=== PATIENT | female | born 1940 | race Caucasian/White ===

== ENCOUNTER 2018-09-11 17:42 | Inpatient (IN) ==
--- NOTE | 2018-09-11 18:26 | PROVIDER DOCUMENTATION ---
HPI-Neurological Disorder - General Chief Complaint: Altered Mental Status Stated Complaint: AMS, fever Time Seen by Provider: 09/11/18 17:52 Source: patient, family Allergies/Adverse Reactions: Patient Allergies Allergy/AdvReac Type Severity Reaction Status Date / Time pseudoephedrine Allergy Severe ITCHING Verified 12/26/17 16:54 [From [facility]] Home Medications: Home Medication List Medication Instructions Recorded Confirmed Last Taken Type Methylphenidate HCl [Ritalin] 30 mg PO DAILY 12/26/17 09/11/18 Unknown History Tramadol [Ultram] 50 mg PO Q8HR 7 Days #20 tablet 12/26/17 09/11/18 Unknown Rx Carbidopa/Levodopa [Carbidopa-Levo 25 - 100 mg PO DAILY PRN 09/11/18 09/11/18 Unknown History 25-100 Tab] Clonazepam 0.5 mg PO DAILY 09/11/18 09/11/18 Unknown History Furosemide 40 mg PO DAILY PRN 09/11/18 09/11/18 Unknown History Gabapentin E.r. [Gralise] 300 mg PO DAILY 09/11/18 09/11/18 Unknown History Levothyroxine [Synthroid] 125 microgm PO DAILY 09/11/18 09/11/18 Unknown History Ropinirole [Requip] 4 mg PO DAILY 09/11/18 09/11/18 Unknown History - History of Present Illness-Neuro Nature of Presenting Problem: HPI: Pt reports to ED for AMS. Her daughter states that she went to see her mother today and found her altered, meaning she was not acting normally. She was able to eat her breakfast, but was not her normal self. Her brother and dad was there, daughter went to get some groceries and when she returned, she found her mom not responding, in and out of lucid intervals, where she was able to speak, but then was not able to respond. Severity: reports: mild Onset/Duration: reports: this morning Timing: reports: still present Context: reports: found unresponsive by family, falling Character of Altered Mental Status: reports: disoriented, confused, trouble concentrating, decreased responsiveness Any recent trauma/injury?: reports: none Character of Deficits: reports: altered sensation, impaired speech New weakness or altered sensation location:: reports: none Cognitive Baseline: alert, oriented x3 Gait Baseline: walks without assistance Associated Symptoms: reports: headache, confusion, fever/chills, diaphoretic, weakness. denies: short of breath, fainting, dizziness, chest pain, neck/back pain, nausea, slurred speech, vomiting Similar Symptoms Previously?: Yes Recently seen or treated by another doctor?: Yes Review of Systems - Adult - REVIEW OF SYSTEMS - ADULT ROS:: limited per condition Constitutional: reports: no symptoms reported Eyes: reports: no symptoms reported Ears, Nose, Mouth & Throat: reports: no symptoms reported Cardiovascular: reports: no symptoms reported Respiratory: reports: no symptoms reported Gastrointestinal: reports: no symptoms reported Genitourinary: reports: no symptoms reported Musculoskeletal: reports: no symptoms reported Integumentary: reports: no symptoms reported Neurological: reports: see HPI Psychiatric: reports: no symptoms reported Endocrine: reports: no symptoms reported Hematologic/Lymphatic: reports: no symptoms reported Allergic/Immunologic: reports: no symptoms reported All Other Systems: Reviewed and Negative Past History - Adult - PAST MEDICAL HISTORY-ADULT Review of Records: reports: Old Records Reviewed, Nursing Assessment Review, Medications Reviewed, Social history reviewed & non-contributory. Major Childhood Illnesses: reports: denies history Cardiovascular: reports: denies history Respiratory: reports: denies history Gastrointestinal: reports: denies history Obstetrical/Gynecological: reports: denies history Genitourinary: reports: denies history Musculoskeletal: reports: other (neuropathy) Neurological: reports: other (RLS) Endocrine/Immune: reports: thyroid disorder, other (narcolepsy) Other Conditions: reports: denies history - PRIOR SURGERIES/PROCEDURES Surgical/Procedure History: reports: hysterectomy, tonsillectomy, breast (cyst removed), other (hemorrhoidectomy) - IMMUNIZATION STATUS Childhood Immunizations: See Nurse Assessment Flu Vaccine: See Nurse Assessment - FAMILY HISTORY Family History: reviewed, not pertinent - SOCIAL HISTORY Smoking: denies Substance Use: none/never Alcohol Use Frequency: never Living Situation: family Physical Exam- Neurological - Physical Exam-Neuro Initial Vital Signs Reviewed: Yes General Appearance: cachetic, thin, lethargic, slow to respond Eye Exam: bilateral eye: normal inspection, PERRL, EOMI HENMT: normocephalic/atraumatic, moist mucous membranes, TMs normal, pharynx normal Head Injury: no evidence of injury Neck: full range of motion Respiratory: chest non-tender, lungs clear, normal breath sounds, no pleuratic chest pain. negative: crackles, rales, rhonchi Cardiovascular: normal peripheral pulses, regular rate, rhythm, no edema. negative: bradycardia, tachycardia Abdominal Exam: normal bowel sounds, non tender, soft. 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 negative: normal speech Coordination/Gait: other (unable to cooperate with neuro exam) Motor/Sensory: other (unable to cooperate with neuro exam) Neurologic: other (unable to cooperate with neuro exam) Integumentary: normal color, normal turgor, warm/dry Psych/Mental Status: oriented x 3. negative: normal mood/affect, normal thought content, normal thought process - Glascow Coma Scale Best Eye Response: (3) open to voice Best Verbal Response: (3) inappropriate words Best Motor Response: (5) localizes to pain Progress - PLAN OF CARE/RESULTS Progress/Plan/Lab Results: Vital Signs - 8 hr 09/11/18 18:01 09/11/18 18:32 09/11/18 20:30 Temperature 102.4 F H 98 F Pulse Rate 90 77 74 Respiratory Rate 20 18 19 Blood Pressure 162/69 139/57 139/57 O2 Sat by Pulse Oximetry 94 L 95 93 L 09/11/18 20:50 09/11/18 21:00 09/11/18 21:10 Temperature Pulse Rate 77 79 78 Respiratory Rate 20 18 16 Blood Pressure O2 Sat by Pulse Oximetry 99 92 L 95 09/11/18 21:20 09/11/18 21:30 Temperature Pulse Rate 83 77 Respiratory Rate 17 18 Blood Pressure O2 Sat by Pulse Oximetry 98 98 09/11/18 18:18 Influenza Screen - Final Nasopharyngeal Laboratory Results - last 24 hr 09/11/18 09/11/18 09/11/18 18:17 18:20 18:20 WBC 4.92 RBC 4.31 Hgb 12.4 Hct 39.1 MCV 90.7 MCH 28.8 MCHC 31.7 L RDW Std Deviation 13.2 Plt Count 162 MPV 9.2 Immature Gran % (Auto) 0.0 Neut % (Auto) 70.5 Lymph % (Auto) 17.7 L [place] % (Auto) 11.0 H Eos % (Auto) 0.6 Baso % (Auto) 0.2 Immature Gran # (Auto) 0.00 Neut # (Auto) 3.47 Lymph # (Auto) 0.87 L [place] # (Auto) 0.54 Eos # (Auto) 0.03 Baso # (Auto) 0.01 PT INR PTT (Actin FS) Sodium 140 Potassium 4.1 Chloride 97 L Carbon Dioxide 28 Anion Gap 15 BUN 25 H Creatinine 1.4 H Estimated GFR/1.73 m2 36 BUN/Creatinine Ratio 18 Glucose 104 POC Glucose 114 H Calculated Osmolality 284 Calcium 8.5 L Total Bilirubin 0.37 AST 25 ALT 12 Alkaline Phosphatase 84 Creatine Kinase 127 Troponin T Total Protein 6.8 Albumin 4.2 Globulin 2.6 Albumin/Globulin Ratio 1.6 Plasma Lactate Urine Source Urine Color Urine Turbidity Urine pH Ur Specific [place] Urine Protein Ur Glucose (Stick) Ur Ketones (Stick) Urine Blood Urine Nitrite Urine Bilirubin Urobilinogen Dipstick Urine Leukocytes Urine WBC (Auto) Urine RBC (Auto) U Epithel Cells (Auto) Urine Bacteria (Auto) Urine Opiates Screen Ur Oxycodone Screen Ur Methadone, Qual Ur Barbiturates Screen Ur Phencyclidine Scrn Ur Amphetamines Screen U Benzodiazepines Scrn Urine Cocaine Screen U Cannabinoids Screen Plasma/Serum Ethyl Alc 09/11/18 09/11/18 09/11/18 18:20 18:20 18:20 WBC RBC Hgb Hct MCV MCH MCHC RDW Std Deviation Plt Count MPV Immature Gran % (Auto) Neut % (Auto) Lymph % (Auto) [place] % (Auto) Eos % (Auto) Baso % (Auto) Immature Gran # (Auto) Neut # (Auto) Lymph # (Auto) [place] # (Auto) Eos # (Auto) Baso # (Auto) PT 14.2 INR 1.01 PTT (Actin FS) 31.3 Sodium Potassium Chloride Carbon Dioxide Anion Gap BUN Creatinine Estimated GFR/1.73 m2 BUN/Creatinine Ratio Glucose POC Glucose Calculated Osmolality Calcium Total Bilirubin AST ALT Alkaline Phosphatase Creatine Kinase Troponin T 0.020 Total Protein Albumin Globulin Albumin/Globulin Ratio Plasma Lactate 0.8 Urine Source Urine Color Urine Turbidity Urine pH Ur Specific [place] Urine Protein Ur Glucose (Stick) Ur Ketones (Stick) Urine Blood Urine Nitrite Urine Bilirubin Urobilinogen Dipstick Urine Leukocytes Urine WBC (Auto) Urine RBC (Auto) U Epithel Cells (Auto) Urine Bacteria (Auto) Urine Opiates Screen Ur Oxycodone Screen Ur Methadone, Qual Ur Barbiturates Screen Ur Phencyclidine Scrn Ur Amphetamines Screen U Benzodiazepines Scrn Urine Cocaine Screen U Cannabinoids Screen Plasma/Serum Ethyl Alc 09/11/18 09/11/18 09/11/18 18:20 18:20 20:04 WBC RBC Hgb Hct MCV MCH MCHC RDW Std Deviation Plt Count MPV Immature Gran % (Auto) Neut % (Auto) Lymph % (Auto) [place] % (Auto) Eos % (Auto) Baso % (Auto) Immature Gran # (Auto) Neut # (Auto) Lymph # (Auto) [place] # (Auto) Eos # (Auto) Baso # (Auto) PT INR PTT (Actin FS) Sodium Potassium Chloride Carbon Dioxide Anion Gap BUN Creatinine Estimated GFR/1.73 m2 BUN/Creatinine Ratio Glucose POC Glucose Calculated Osmolality Calcium Total Bilirubin AST ALT Alkaline Phosphatase Creatine Kinase 123 Troponin T Total Protein Albumin Globulin Albumin/Globulin Ratio Plasma Lactate Urine Source CLEAN CATCH Urine Color YELLOW Urine Turbidity CLEAR Urine pH 6.5 Ur Specific [place] 1.003 Urine Protein NEGATIVE Ur Glucose (Stick) NEGATIVE Ur Ketones (Stick) NEGATIVE Urine Blood NEGATIVE Urine Nitrite NEGATIVE Urine Bilirubin NEGATIVE Urobilinogen Dipstick NORMAL Urine Leukocytes NEGATIVE Urine WBC (Auto) <10 Urine RBC (Auto) <10 U Epithel Cells (Auto) <10 Urine Bacteria (Auto) NEGATIVE Urine Opiates Screen Ur Oxycodone Screen Ur Methadone, Qual Ur Barbiturates Screen Ur Phencyclidine Scrn Ur Amphetamines Screen U Benzodiazepines Scrn Urine Cocaine Screen U Cannabinoids Screen Plasma/Serum Ethyl Alc 09/11/18 20:04 WBC RBC Hgb Hct MCV MCH MCHC RDW Std Deviation Plt Count MPV Immature Gran % (Auto) Neut % (Auto) Lymph % (Auto) [place] % (Auto) Eos % (Auto) Baso % (Auto) Immature Gran # (Auto) Neut # (Auto) Lymph # (Auto) [place] # (Auto) Eos # (Auto) Baso # (Auto) PT INR PTT (Actin FS) Sodium Potassium Chloride Carbon Dioxide Anion Gap BUN Creatinine Estimated GFR/1.73 m2 BUN/Creatinine Ratio Glucose POC Glucose Calculated Osmolality Calcium Total Bilirubin AST ALT Alkaline Phosphatase Creatine Kinase Troponin T Total Protein Albumin Globulin Albumin/Globulin Ratio Plasma Lactate Urine Source Urine Color Urine Turbidity Urine pH Ur Specific [place] Urine Protein Ur Glucose (Stick) Ur Ketones (Stick) Urine Blood Urine Nitrite Urine Bilirubin Urobilinogen Dipstick Urine Leukocytes Urine WBC (Auto) Urine RBC (Auto) U Epithel Cells (Auto) Urine Bacteria (Auto) Urine Opiates Screen NONE DETECTED Ur Oxycodone Screen NONE DETECTED Ur Methadone, Qual NONE DETECTED Ur Barbiturates Screen NONE DETECTED Ur Phencyclidine Scrn NONE DETECTED Ur Amphetamines Screen NONE DETECTED U Benzodiazepines Scrn NONE DETECTED Urine Cocaine Screen NONE DETECTED U Cannabinoids Screen NONE DETECTED Plasma/Serum Ethyl Alc Orders Category Date Time Status Cardiac Monitoring DIRECTED Care 09/11/18 18:24 Active IV Insertion ORDERED Care 09/11/18 18:24 Completed Notify MD of + Sepsis Screen NOW Care 09/11/18 18:24 Active Notify Physician As Ordered Care 09/11/18 18:24 Active CHEST-1 VIEW [RAD] Stat Exams 09/11/18 18:[address] HEAD W/O CONTRAST [CT] Stat Exams 09/11/18 18:27 Completed ALCOHOL BLOOD Stat Lab 09/11/18 18:20 Completed AMMONIA [CHEM] Stat Lab 09/11/18 21:33 Received BLOOD CULTURE [BLDCUL] Stat Lab 09/11/18 18:20 Results CBC WITH DIFF [HEME] Stat Lab 09/11/18 18:20 Completed CK PROFILE [SP CHEM] Stat Lab 09/11/18 18:20 Completed CK PROFILE [SP CHEM] Stat Lab 09/11/18 18:20 Completed COMPREHENSIVE METABOLIC PANEL [CHEM] Stat Lab 09/11/18 18:20 Completed INFLUENZA SCREEN A/B Stat Lab 09/11/18 18:18 Completed LACTATE, PLASMA [CHEM] Q3H Lab 09/11/18 18:20 Completed PROTIME WITH INR [COAG] Stat Lab 09/11/18 18:20 Completed PTT [COAG] Stat Lab 09/11/18 18:20 Completed TROPONIN T Stat Lab 09/11/18 18:20 Completed URINALYSIS W/POSS RFLX CULT [URINALYSIS] Stat Lab 09/11/18 20:04 Completed URINE DRUG SCREEN Stat Lab 09/11/18 20:04 Completed Oseltamivir [Tamiflu] Med 09/11/18 21:50 Once 75 mg PO NOW ONE Oxygen Device Stat Oth 09/11/18 18:24 Completed A/P: Influenza A +, vitals stable. Pt is still waxing and waning in her mental status. Labs wnl except for influenza results. Will admit. Result Diagrams: 09/11/18 18:20 09/11/18 18:20 - EKG 1 Time of EKG reading by physician:: 18:20 EKG Read and Signed by:: Rudy Paula EKG Interpretation (*Must complete 3 of following elements*): Abnormal Rate: 97 Rhythm: sinus [place]: left QRS: LBB, LVH NE Interval: normal ST Wave: normal - XRAY 1 XRAY Study: Chest Impression: Abnormal ([facility] [address], [address], [place] [address] Department of Imaging Patient: NIKOLAY VUONG ANNADM Date: 09/11/18MR#: [id number] : 1940DM [id number] Age /Sex: 78/FRoom/Bed: Loc: ED Ordering Physician: Rudy Paula MD Family Physician: Jessica Restrepo MD Reason for Procedure: FEVER Signed EXAM: CHEST-1 VIEW INDICATION: FEVER TECHNIQUE: One view COMPARISON: 08/30/2017 FINDINGS: There is mild biapical chronic pleural thickening, stable. The lungs are grossly clear. There is no discrete pleural fluid collection or pneumothorax. The cardiomediastinal silhouette and central vasculature are grossly unremarkable. IMPRESSION: No evidence of acute pathology by plain radiograph. Electronically signed by Cheng Pagan 09/11/2018 6:40 PM 09/11/18 1840 Interpreting Physician: Cheng Pagan MD Dictated Date/Time: 09/11/18 7636 cc: Rudy Paula MD; Jessica Restrepo MD) - CT/MRI 1 CT Study: Head Impression: Abnormal ([facility] [address], [address], [place] [address] Department of Imaging Patient: NIKOLAY VUONG ANNADM Date: 09/11/18#: [id number] : 1940DM Status: REG ERAcct#: [id number] Age /Sex: 78/FRoom/Bed: Loc: ED Ordering Physician: Rudy Paula MD Family Physician: Jessica Restrepo MD Reason for Procedure: ams Signed EXAM: CT HEAD W/O CONTRAST INDICATION: ams TECHNIQUE: This exam was performed using automated exposure control, adjustment of mA or kV according to patient size, and/or use of iterative reconstruction technique. COMPARISON: FINDINGS: There is a small Virchow-Jose space versus a tiny chronic lacunar infarct involving the right basal ganglion, stable. There is no definite acute infarct given the limited sensitivity of CT versus MRI. There is no discrete intracranial mass, mass effect, or intracranial hemorrhage. There is minimal ethmoid and sphenoid sinus mucosal thickening. Surrounding soft tissues and bony structures are essentially unremarkable, otherwise. IMPRESSION: No evidence of acute intracranial pathology. Electronically signed by Cheng Pagan 09/11/2018 7:11 PM 09/11/181910 Interpreting Physician : Cheng Pagan MD Dictated Date/Time: 09/11/181909 cc: Rudy Paula MD; Jessica Restrepo MD) Departure - Departure Date of Disposition Decision: 09/11/18 Time of Disposition Decision: 22:01 DIAGNOSIS: Influenza Disposition: ADMITTED INPATIENT 09 Certified Medical Emergency: Emergent Condition: Stable Additional Freetext Instructions: ED Follow Up Instructions: You have been treated by a care provider in the Emergency Department. These instructions are being provided to you so you can have an understanding of how to care for yourself upon discharge. Upon discharge from the Emergency Department, you are responsible for making arrangements for follow-up care by a physician of your choice. Take all prescribed medications as directed. Return to the Emergency Department immediately for any new or worsening symptoms. You may call the Physician Referral phone number at [phone] to obtain a list of Physicians who are taking new patients. Referrals and Follow-Ups: Jessica Restrepo MD [Primary Care Provider] - - Critical Care Note This patient required my direct & personal management of CC.: No Attestation - Physician/ ARNOLDO Attestation Patient care was provided by Advanced Practice Provider:: No The physician spent face to face time with patient:: Yes Advanced Practice Provider documentation review:: Supervising physician onsite and consulted in the evaluation and care of this patient. The physician did have a face to face encounter with the patient.
[2018-09-11 18:35] LABS: BASO# 0.01 X1000 (0.0-0.2); BASO% 0.2 % (0.0-0.8); EOS# 0.03 X1000 (0.0-0.7); EOS% 0.6 % (0.0-10.0); HEMATOCRIT 39.1 % (37.0-47.0); HEMOGLOBIN 12.4 g/dL (12.0-16.0); LYMPH# 0.87 X1000 (1.2-3.4); LYMPH% 17.7 % (20.5-51.1); MCH 28.8 PG (27-31); MCHC 31.7 g/dL (33-37); MCV 90.7 FL (81-99); MONO# 0.54 X1000 (0.11-0.59); MPV 9.2 FL (7.4-10.4); NEUT# 3.47 X1000 (1.4-6.5); NEUT% 70.5 % (42.2-75.2); PLT 162 X1000 (130-400); RBC 4.31 XMIL (4.2-5.4); RDW 13.2 % (11.5-14.5); WBC 4.92 X1000 (4.8-10.8)
--- NOTE | 2018-09-11 18:42 | Diag Imaging Result Doc PS360 ---
EXAM: CHEST-1 VIEW INDICATION: FEVER TECHNIQUE: One view COMPARISON: 08/30/2017 FINDINGS: There is mild biapical chronic pleural thickening, stable. The lungs are grossly clear. There is no discrete pleural fluid collection or pneumothorax. The cardiomediastinal silhouette and central vasculature are grossly unremarkable. IMPRESSION: No evidence of acute pathology by plain radiograph. Electronically signed by Cheng Pagan 09/11/2018 6:40 PM
[2018-09-11 18:44] LABS: INR 1.01; PROTIME 14.2 Seconds (11.0-16.0)
[2018-09-11 18:45] LABS: PTT 31.3 Seconds (22.3-41.8)
[2018-09-11 19:07] LABS: ALB/GLOB RATIO 1.6; ALBUMIN 4.2 g/dL (3.5-5.0)
[2018-09-11 19:12] LABS: CALCIUM 8.5 mg/dL (8.8-10.2); CREATININE 1.4 mg/dL (0.5-0.9); POTASSIUM 4.1 mmol/L (3.5-5.1); TOTAL BILIRUBIN 0.37 mg/dL (0.20-1.00); TOTAL PROTEIN 6.8 g/dL (6.3-8.3)
--- NOTE | 2018-09-11 19:14 | Diag Imaging Result Doc PS360 ---
EXAM: CT HEAD W/O CONTRAST INDICATION: ams TECHNIQUE: This exam was performed using automated exposure control, adjustment of mA or kV according to patient size, and/or use of iterative reconstruction technique. COMPARISON: 01/10/2018 FINDINGS: There is a small Virchow-Jose space versus a tiny chronic lacunar infarct involving the right basal ganglion, stable. There is no definite acute infarct given the limited sensitivity of CT versus MRI. There is no discrete intracranial mass, mass effect, or intracranial hemorrhage. There is minimal ethmoid and sphenoid sinus mucosal thickening. Surrounding soft tissues and bony structures are essentially unremarkable, otherwise. IMPRESSION: No evidence of acute intracranial pathology. Electronically signed by Cheng Pagan 09/11/2018 7:11 PM
[2018-09-11 20:19] LABS: URINE SOURCE CLEAN CATCH
[2018-09-11 20:27] LABS: BILIRUBIN URINE NEGATIVE (NEGATIVE); BLOOD URINE NEGATIVE (NEGATIVE); COLOR YELLOW; GLUCOSE URINE NEGATIVE (NEGATIVE); KETONE URINE NEGATIVE (NEGATIVE); LEUKOCYTES URINE NEGATIVE (NEGATIVE); NITRITE URINE NEGATIVE (NEGATIVE); PH URINE 6.5; PROTEIN URINE NEGATIVE (NEGATIVE); SP GRAVITY URINE 1.003; TURBIDITY URINE CLEAR (CLEAR); UROBILINOGEN URINE NORMAL (NORMAL)
[2018-09-11 20:29] LABS: UR EPITHELIAL CELLS <10 /HPF (<10); URINE BACTERIA NEGATIVE /HPF; URINE RBC <10 /HPF (<10); URINE WBC <10 /HPF (<10)
[2018-09-11 21:21] LABS: UR AMPHETAMINES QUAL NONE DETECTED (NONE DETECT); UR BARBITUATES QUAL NONE DETECTED (NONE DETECT); UR BENZODIAZEPIN QUAL NONE DETECTED (NONE DETECT); UR CANNABINOIDS QUAL NONE DETECTED (NONE DETECT); UR COCAINE QUAL NONE DETECTED (NONE DETECT); UR METHADONE QUAL NONE DETECTED (NONE DETECT); UR OPIATES QUAL NONE DETECTED (NONE DETECT); UR OXYCODONE QUAL NONE DETECTED (NONE DETECT); UR PCP QUAL NONE DETECTED (NONE DETECT)
[2018-09-11] MEDS ORDERED: TAMIFLU PO ONE (21:50)
--- NOTE | 2018-09-11 23:46 | HISTORY AND PHYSICAL ---
PHYSICIAN: Patient of Dr. Restrepo. REASON FOR ADMISSION: Two-day history of weakness, poor oral intake and intermittent confusion today. HISTORY OF PRESENT ILLNESS: Ms. Payal Simeon is a 78-year-old lady with past medical history of restless leg syndrome, narcolepsy, hypothyroidism, who 2 days ago according to her she had been feeling weak and not eating. This morning at [employer] she almost slumped and collapsed while at [employer] but did not lose any consciousness. Her had to actually support her walking back to the car and eventually into the house when they arrived at home. She said ever since they got back from [employer] she has gotten weaker and intermittently confused. She then started spiking fever 103 with occasional chills. No cough. No chest pain. No aches. No myalgias. No cardiorespiratory complaints. No GI or complaints. No neurological complaints. She has been in the ER. She has received some Tylenol and she has been afebrile although intermittently she gets confused. Patient denies any neck stiffness or any focal neurological symptoms. REVIEW OF SYSTEMS: Twelve-system review was done. Positive findings per HPI. The patient's daughter at bedside reports that she has had the flu and her mother was exposed to her last week. ALLERGIES: Pseudoephedrine. HOME MEDICATIONS: Carbidopa 25/100 p.r.n., clonazepam 0.5 mg daily, furosemide 40 mg daily, gabapentin extended release 200 mg daily, levothyroxine 125 mcg daily, Ritalin 30 mg daily, Requip 4 mg daily. SURGICAL HISTORY: Hysterectomy, tonsillectomy, hemorrhoidectomy, breast cyst biopsy. PAST MEDICAL HISTORY: Patient also has a past medical history of chorion carcinoma. FAMILY HISTORY: Notable for diabetes and cervical cancer and heart disease. SOCIAL HISTORY: She does not smoke, drink or use illicit drugs. She is , lives with her . LABORATORIES: 4000. Hemoglobin and hematocrit 12 and 39. Platelets 162. Normal differential. BUN is 75. Creatinine 1.4. Glucose 144. Calcium 8.4. Lactate 0.8. PTT is normal. Urine drug screen negative. Urinalysis clean. Flu swab positive for flu A. Chest x-ray and CT scan both negative for any cardiorespiratory or intracranial acute pathologies respectively. PHYSICAL EXAMINATION: GENERAL: Elderly woman who is lethargic and drowsy. She is easily arousable and oriented to person, place, time, with normal mood and affect. HEENT: Head is normocephalic, atraumatic. Eyes: PERRL. EOMI. She is anicteric, not pale. VITAL SIGNS: Blood pressure 139/67, heart rate 77, respirations 18, temperature is 98 degrees Fahrenheit. She is 98% on room air. NECK: Supple. No JVD. No carotid bruit. No thyromegaly. CHEST: Clear to auscultation with good entry in both lung olivares. CARDIOVASCULAR: First and second heart sounds heard. No gallops, murmurs or rubs. Rhythm is regular. ABDOMEN: Slightly protuberant, soft. No tenderness or megaly. Bowel sounds are normal. RECTAL: Exam deferred at this time. EXTREMITIES: The patient has good distal pulse volumes in all extremities, symmetrical, regular. No edema, clubbing or peripheral cyanosis. NEUROLOGICAL: No gross focal deficits. SKIN: Intact. No breakdown, lesions, erythema. MUSCULAR: Exam is grossly normal. ASSESSMENT: 1. Influenza A infection. 2. Dehydration. 3. Mild encephalopathy. PLAN: Patient will be admitted, aggressively hydrated. Patient has been started on Tamiflu. We treated her symptomatically for fever intermittently. Avoid diuretics and hold any potentially neurotoxic medication in interim. cc: MD Jessica Nye MD
[2018-09-11] MEDS ORDERED: ZOFRAN IV PRN (23:58)
[2018-09-12] MEDS ORDERED: REQUIP PO ONE ×2 (00:38→22:21)
[2018-09-12] MEDS: TYLENOL PO PRN ×3 (00:50→16:28)
[2018-09-12] MEDS: NS 1,000 ML IV SCH ×3 (00:50→16:28)
[2018-09-12] MEDS: LOVENOX SUBQ SCH ×2 (00:50→20:17)
[2018-09-12 06:40] LABS: BASO# 0.01 X1000 (0.0-0.2); BASO% 0.2 % (0.0-0.8); HEMATOCRIT 38.9 % (37.0-47.0); LYMPH# 1.17 X1000 (1.2-3.4); MCH 28.3 PG (27-31); MCHC 30.8 g/dL (33-37); MCV 91.7 FL (81-99); MONO# 0.68 X1000 (0.11-0.59); MONO% 15.7 % (1.7-9.3); MPV 9.5 FL (7.4-10.4); NEUT# 2.47 X1000 (1.4-6.5); NEUT% 57.1 % (42.2-75.2); PLT 155 X1000 (130-400); RBC 4.24 XMIL (4.2-5.4); RDW 13.6 % (11.5-14.5); WBC 4.33 X1000 (4.8-10.8)
[2018-09-12 07:07] LABS: ALB/GLOB RATIO 1.4; ALBUMIN 3.6 g/dL (3.5-5.0); CALCIUM 8.3 mg/dL (8.8-10.2); CREATININE 1.1 mg/dL (0.5-0.9); MAGNESIUM 1.9 mg/dL (1.5-2.7); POTASSIUM 3.7 mmol/L (3.5-5.1); TOTAL BILIRUBIN 0.44 mg/dL (0.20-1.00); TOTAL PROTEIN 6.1 g/dL (6.3-8.3)
[2018-09-12] MEDS: SYNTHROID PO SCH (08:30)
[2018-09-12] MEDS: TAMIFLU PO SCH ×2 (08:30→20:03)
[2018-09-12] MEDS: REQUIP PO SCH (08:30)
--- NOTE | 2018-09-12 08:54 | EKG Report ---
Test Performed on : 09/11/2018 6:12:23 PM Test Reason : ED. NO EKG ORDER FOR MUSE Blood Pressure : / mmHG Vent. Rate : 097 BPM Atrial Rate : 097 BPM P-R Int : 166 ms QRS Dur : 140 ms QT Int : 416 ms P-R-T Axes : 082 -42 105 degrees QTc Int : 528 ms Sinus rhythm. with premature ventricular complexes. or fusion complexes Possible Left atrial enlargement Left axis deviation Left bundle branch block Abnormal ECG No previous ECGs available Unconfirmed Result
--- NOTE | 2018-09-12 11:39 | PROGRESS NOTE ---
DATE: 09/12/2018 SUBJECTIVE: Today Ms. Simeon refers to be doing a lot better. The daughter was at the bedside with her at the time of the encounter. She is more lucid and conversational. OBJECTIVE: Vital signs: Blood pressure is 136/67, pulse of 79, respirations 18, temperature 98.3 degrees. Patient is saturating 96% on room air. General: Ms. Simeon is a 78-year-old female. She is in bed, did not seem to be in any cardiopulmonary distress. HEENT: Mucosa is pink and moist. Anicteric. Acyanotic. Neck: Supple. Chest: Clear to auscultation. There was no crepitations,[id number] no rhonchi. Cardiovascular: Regular rate and rhythm. No murmurs, no rubs, no gallops. GI: Abdomen soft, nontender. Bowel sounds present. Extremities: No pedal edema. WEIGHT CALCULATOR: Patient is awake and alert, follows commands. No nuchal rigidity or meningismus. She follows commands and motor is 5/5 in all extremities. LABORATORY DATA: WBC is 4.33, hemoglobin is 12.0, platelet count of 155,000. Chemistry is also reviewed, creatinine is down to 1.3, BUN has normalized. So far blood cultures have all been negative for now. Influenza screening was positive for influenza A. A chest x-ray which was done on admission showed no evidence of acute pathology. A CT scan of the brain showed no evidence of acute intracranial pathology. ASSESSMENT: 1. Altered mental status on presentation secondary to possibly infectious and metabolic encephalopathy. The patient's sensorium continues to be improving. 2. Febrile illness, likely due to influenza infection. The patient has been started on Tamiflu and will continue symptomatic management. 3. Clinical volume depletion. The patient is improved with IV fluids. 4. Acute on chronic renal failure. Creatinine is back to 1.1 which seems to be patient's baseline. 5. Peripheral neuropathy. We will start the patient on her gabapentin. 6. Hypothyroidism. The patient is on levothyroxine. 7. Some restless legs syndrome. Patient is on Requip. This will be restarted as well. PLAN: So, in general, I think Ms. Simeon is doing a lot better. She looks more lucid and more conversational. We are going to start her on healthy heart diet. Restart some of her home medications since her mentation has improved. Continue with a 5 day course of the Tamiflu for influenza therapy and get physical therapy to work with her today. cc: Kevin Mendoza MD
[2018-09-12] MEDS: GRALISE PO SCH (16:28)
[2018-09-12] MEDS: KLONOPIN PO SCH (16:38)
[2018-09-13] MEDS: NS 1,000 ML IV SCH ×3 (01:37→10:26)
[2018-09-13] MEDS: SYNTHROID PO SCH (06:17)
[2018-09-13 08:41] VITALS: BP 156/83
[2018-09-13] MEDS: REQUIP PO SCH (10:24)
[2018-09-13] MEDS: KLONOPIN PO SCH (10:24)
[2018-09-13] MEDS: TAMIFLU PO SCH (10:24)
[2018-09-13] MEDS: GRALISE PO SCH (10:24)
--- NOTE | 2018-09-16 16:56 | DISCHARGE SUMMARY ---
ADMISSION DATE: 09/11/2018 DISCHARGE DATE: 09/13/2018 DISPOSITION: Home with home health. FOLLOWUP: Dr. Restrepo. CONSULTATION DURING THIS ADMISSION: None. IMAGING STUDIES OF SIGNIFICANCE: A chest x-ray showed no evidence of acute pathology. A CT scan of the head showed no evidence of acute intracranial pathology. INVASIVE PROCEDURES DONE DURING THIS ADMISSION: None. DIAGNOSES AT THE TIME OF ADMISSION: 1. Influenza infection. 2. Dehydration. 3. Mild encephalopathy. DIAGNOSES AT THE TIME OF DISCHARGE: 1. Altered mental status on presentation secondary to possible infectious and metabolic encephalopathy, improved. 2. Febrile illness secondary to influenza A infection. The patient was started on Tamiflu. 3. Clinical volume depletion, improved. 4. Acute on chronic renal failure. Creatinine was back to 1.1 which is patient's baseline. 5. Peripheral neuropathy. 6. Hypothyroidism. 7. Restless leg syndrome. DISCHARGE MEDICATIONS: 1. Methylphenidate 30 mg daily. 2. Tramadol 50 mg p.o. q.8 hourly. 3. Carbidopa/levodopa. 4. Klonopin 0.5 p.o. daily. 5. Furosemide has been discontinued. 6. Gabapentin 300 p.o. daily. 7. Levothyroxine 125 mcg daily. 8. Requip 4 mg daily. 9. Buspirone 50 mg b.i.d. 10. Tamiflu 75 mg b.i.d. PRESENTING COMPLAINT: Weakness and poor intake and confusion. HISTORY OF PRESENTING COMPLAINT: Ms Simeon is a 78-year-old female with multiple comorbidities, who presented to the emergency department because of near collapse at latter-day associated with fever and some chills, generalized weakness and poor oral intake. Upon presentation, patient was found to be remarkably dehydrated so she was admitted to the medical floor for further medical care. HOSPITAL COURSE: Ms Simeon' lab work and investigation revealed that she had influenza A. She was started on Tamiflu, was adequately hydrated. Subsequently, she continued to feel better. Her blood cultures came back 48 hours negative. Physical Therapy evaluated her. She was able to do about 30 feet with contact guard assistance. On the day of the discharge, Ms. Simeon referred to feel a lot better. Creatinine is down to 1.1. Her vitals were all reviewed which were within normal range. Medications have been reconciled. She is therefore being discharged in stable condition. She has been advised to keep adequate hydration and follow up with her primary care doctor, Dr. Bowie. TIME SPENT: For discharge is 37 minutes. cc: MD Jessica Pepe MD
== END 2018-09-13 14:51 | disposition home health service (06) | DRG 193 ==
LOC: SUPCPDRO → ED 17:42 → SUATTDRO 23:39 → 3N 23:39
PROVIDERS: ATTEND Internal Medicine
CPT/HCPCS: 70450; 71010; 71045; 80053; 80101; 80301; 80307; 80320; 80324; 80345; 80346; 80353; 80358; 80361; 80365; 81001; 82055; 82140; 82550; 82948; 83605; 83735; 83992; 84484; 85025; 85610; 85730; 87040; 87275; 87276; 87804; 93005; 97116; 97162; 99285; A9270; G0431; G0434; G0479; G0480; G6040; J1650; J2405; J7030; XXXXX

== ENCOUNTER 2019-02-09 05:14 | Inpatient (IN) ==
--- NOTE | 2019-02-09 05:26 | PROVIDER DOCUMENTATION ---
HPI-Chest Pain - General Chief Complaint: Chest Pain Stated Complaint: RESTLESS LEGS/RIGHT SIDE CHEST PAIN Time Seen by Provider: 02/09/19 05:24 Source: patient, family Allergies/Adverse Reactions: Patient Allergies Allergy/AdvReac Type Severity Reaction Status Date / Time pseudoephedrine Allergy Severe ITCHING Verified 02/09/19 05:44 [From [facility]] Home Medications: Home Medication List Medication Instructions Recorded Confirmed Last Taken Type Gabapentin E.r. [Gralise] 300 mg PO TID 09/11/18 02/09/19 Unknown History Levothyroxine [Synthroid] 125 microgm PO DAILY 09/11/18 02/09/19 Unknown History Ropinirole [Requip] 3 mg PO DAILY 09/11/18 02/09/19 Unknown History Buspirone [Buspar] 15 mg PO BID 09/12/18 02/09/19 Unknown History - History of Present Illness-CP Nature of Presenting Problem: History is somewhat limited as patient seems altered and is kicking her legs up and down, rocking back and forth with some slurring of speech and mumbling sometimes with somewhat clear and appropriate answers at other times. at bedside is also not a great historian as he is unsure of her meds, the name of her doctor, etc. However, it would appear that last night she had a "spell" of "bad restless leg syndrome," which her relates occurs every 3-4 weeks or so, but it doesn't usually last more than a couple of hours before she falls asleep and is ok when she wakes up. What also is different this episode from prior is that she is also complaining of intermittent, sharp, stabbing right anterior chest pain. It is non-radiating, and not associated with N/V/SOB or diaphoresis. She states she has never had this pain before. When it occurs it seems to last a few seconds then goes away. She is unable to say if there is anything that seems to make it worse or better. Her states that he thinks she has taken her meds as prescribed. States she saw her business office specialist last week, Dr. Wagner, who told her she was fine at her heart was perfect. They cannot remember when her prior stress test was, and she states she has not had a cardiac cath. Denies Fever/Chills/cough. Denies illicit drug use, withdrawal, or prescription drug abuse. Location: reports: other (right anterior lower chest pain, mid clavicular line.) Chest Pain Radiation: reports: no radiation Quality of Pain: reports: sharp, stabbing Severity in ED: mild (her legs are bothering her more) Onset/Duration: last night Timing: still present, intermittent Context/Activities at Onset: reports: recent emotional stress, rest. denies: sleep (unable to sleep) Modifying Factors: improves with: nothing Associated Symptoms: reports: denies symptoms Nitro Today/Relief: no nitro taken today Aspirin Treatment Today: no aspirin today Prior Chest Pain/Cardiac Workup: reports: non-cardiac Similar Symptoms Previously?: Yes (yes with RLS, no for CP) Recently Seen Here or By Another Healthcare Provider: Yes (Dr. Wagner from Cardiology and Dr. Restrepo in [place]) Review of Systems - Adult - REVIEW OF SYSTEMS - ADULT Constitutional: reports: no symptoms reported Eyes: reports: no symptoms reported Ears, Nose, Mouth & Throat: reports: no symptoms reported Cardiovascular: reports: no symptoms reported Respiratory: reports: no symptoms reported Gastrointestinal: reports: no symptoms reported Genitourinary: reports: no symptoms reported Musculoskeletal: reports: no symptoms reported Integumentary: reports: no symptoms reported Neurological: reports: no symptoms reported Psychiatric: reports: no symptoms reported Endocrine: reports: no symptoms reported Hematologic/Lymphatic: reports: no symptoms reported Allergic/Immunologic: reports: no symptoms reported All Other Systems: Reviewed and Negative Past History - Adult - PAST MEDICAL HISTORY-ADULT Review of Records: reports: Old Records Reviewed, Nursing Assessment Review, Medications Reviewed, Social history reviewed & non-contributory. Major Childhood Illnesses: reports: denies history Cardiovascular: reports: denies history Respiratory: reports: denies history Gastrointestinal: reports: denies history Obstetrical/Gynecological: reports: denies history Genitourinary: reports: denies history Musculoskeletal: reports: chronic pain, other (neuropathy, restless leg syndrome ) Neurological: reports: other (RLS) Psychiatric: reports: denies history Endocrine/Immune: reports: denies history, thyroid disorder, other (narcolepsy) Other Conditions: reports: denies history - PRIOR SURGERIES/PROCEDURES Surgical/Procedure History: reports: hysterectomy, tonsillectomy, breast (cyst removed), other (hemorrhoidectomy) - IMMUNIZATION STATUS Childhood Immunizations: See Nurse Assessment Flu Vaccine: See Nurse Assessment - FAMILY HISTORY Family History: reviewed, not pertinent - SOCIAL HISTORY Smoking: quit greater than 1 year Substance Use: none/never Alcohol Use Frequency: rarely Living Situation: family Physical Exam-General - PHYSICAL EXAM-ADULT Initial Vital Signs Reviewed: Yes (VSSAF) - CONSTITUTIONAL General Appearance: appears well, alert, mild distress, thin, other (dry mucous membranes, slurred speech, kicking legs up in the air, rocking back in forth in pain to her legs, won't lay still for exam) - EYES Eyes: PERRL/EOMI, pink conjunctivae - HEAD, EARS, NOSE, MOUTH & THROAT HENMT: normocephalic/atraumatic, normal ENT inspection, TMs normal, pharynx normal. negative: moist mucous membranes - NECK Neck: non-tender, full range of motion, supple, normal inspection - RESPIRATORY Respiratory: chest non-tender, lungs clear, normal breath sounds, no pleuratic chest pain, no respiratory distress, no accessory muscle use - CARDIOVASCULAR Cardiovascular: normal peripheral pulses, regular rate, rhythm, no edema, no gallop, no JVD, no murmur - GASTROINTESTINAL (ABDOMEN) Abdominal Exam: normal bowel sounds, soft, tenderness (minimal RUQ tenderness, no rebound, negative Bar's). negative: McBurney's point tenderness, Bar's sign - LYMPHATIC Lymphatic: no adenopathy - MUSCULOSKELETAL Back Exam: normal inspection, no CVA tenderness, no vertebral tenderness Extremity: normal range of motion, no pedal edema, normal capillary refill, tenderness (both extremities, with FROM) Peripheral Pulses: dorsalis-pedis (R): 2+, dorsalis-pedis (L): 2+ - SKIN Integumentary: normal color, normal turgor, warm/dry - NEUROLOGIC Neurologic: gluing machine offbearer II-XII nml as tested, grossly normal, no motor/sensory deficits - PSYCHIATRIC Psych/Mental Status: normal thought content, normal thought process, oriented x 3, anxious - HEART Score HEART Score: History: Slightly Suspicious HEART Score: ECG: Non-Specific Repolarization Disturbance/LBBB/PM HEART Score: Age: > or = 65 Years HEART Score: Risk Factors for Atherosclerotic Disease: No Risk Factors Known HEART Score: Troponin: < or = Normal Limit (LOW RISK for MACE) Total HEART Score:: 3 Progress - PLAN OF CARE/RESULTS Progress/Plan/Lab Results: Vital Signs - 8 hr 02/09/19 05:21 02/09/19 05:22 02/09/19 05:26 Temperature 97.3 F L Pulse Rate 82 83 Respiratory Rate 18 30 H 13 Blood Pressure 124/80 124/80 O2 Sat by Pulse Oximetry 96 98 02/09/19 05:30 02/09/19 05:40 02/09/19 05:50 Temperature Pulse Rate 82 83 79 Respiratory Rate 15 17 22 Blood Pressure O2 Sat by Pulse Oximetry 98 86 L 95 02/09/19 06:00 02/09/19 06:10 02/09/19 06:20 Temperature Pulse Rate 84 77 79 Respiratory Rate 17 15 21 Blood Pressure O2 Sat by Pulse Oximetry 96 93 L 93 L Laboratory Results - last 24 hr 02/09/19 02/09/19 02/09/19 05:25 05:25 05:25 WBC 7.61 RBC 3.84 L Hgb 11.3 L Hct 34.9 L MCV 90.9 MCH 29.4 MCHC 32.4 L RDW Std Deviation 13.0 Plt Count 236 MPV 9.7 Immature Gran % (Auto) 0.3 Neut % (Auto) 47.3 Lymph % (Auto) 37.8 Gregory % (Auto) 9.9 H Eos % (Auto) 4.3 Baso % (Auto) 0.4 Immature Gran # (Auto) 0.02 Neut # (Auto) 3.60 Lymph # (Auto) 2.88 Gregory # (Auto) 0.75 H Eos # (Auto) 0.33 Baso # (Auto) 0.03 Specimen Type Sample Site pH pCO2 pO2 HCO3 Base Excess Oxyhemoglobin ABG O2 Sat (Calculated) ABG O2 Saturation ABG Carboxyhemoglobin ABG Methemoglobin Edwin Test A-a O2 Difference Total Hemoglobin Lactate Blood Gas Modality FiO2 % Sodium Potassium Chloride Carbon Dioxide Anion Gap BUN Creatinine Estimated GFR/1.73 m2 BUN/Creatinine Ratio Glucose Calculated Osmolality Calcium Magnesium Total Bilirubin AST ALT Alkaline Phosphatase Creatine Kinase Troponin T Rbs-[id number]-[id number] Pept Total Protein Albumin Globulin Albumin/Globulin Ratio Lipase TSH 0.29 Plasma/Serum Ethyl Alc 02/09/19 02/09/19 02/09/19 05:25 05:25 05:25 WBC RBC Hgb Hct MCV MCH MCHC RDW Std Deviation Plt Count MPV Immature Gran % (Auto) Neut % (Auto) Lymph % (Auto) Gregory % (Auto) Eos % (Auto) Baso % (Auto) Immature Gran # (Auto) Neut # (Auto) Lymph # (Auto) Gregory # (Auto) Eos # (Auto) Baso # (Auto) Specimen Type Sample Site pH pCO2 pO2 HCO3 Base Excess Oxyhemoglobin ABG O2 Sat (Calculated) ABG O2 Saturation ABG Carboxyhemoglobin ABG Methemoglobin Edwin Test A-a O2 Difference Total Hemoglobin Lactate Blood Gas Modality FiO2 % Sodium 142 Potassium 4.8 Chloride 105 Carbon Dioxide 28 Anion Gap 9 BUN 31 H Creatinine 1.2 H Estimated GFR/1.73 m2 44 BUN/Creatinine Ratio 26 Glucose 91 Calculated Osmolality 289 Calcium 9.1 Magnesium 2.2 Total Bilirubin 0.17 L AST 21 ALT 13 Alkaline Phosphatase 78 Creatine Kinase 166 Troponin T < 0.010 Pdg-L-Onpzyfsrnib Pept 642 H Total Protein 6.2 L Albumin 4.0 Globulin 2.2 Albumin/Globulin Ratio 1.8 Lipase 48 TSH Plasma/Serum Ethyl Alc 02/09/19 06:01 WBC RBC Hgb Hct MCV MCH MCHC RDW Std Deviation Plt Count MPV Immature Gran % (Auto) Neut % (Auto) Lymph % (Auto) Gregory % (Auto) Eos % (Auto) Baso % (Auto) Immature Gran # (Auto) Neut # (Auto) Lymph # (Auto) Gregory # (Auto) Eos # (Auto) Baso # (Auto) Specimen Type ARTERIAL Sample Site R RADIAL pH 7.41 pCO2 50 H pO2 74 HCO3 29.6 H Base Excess 6.0 H Oxyhemoglobin 94.2 L ABG O2 Sat (Calculated) 14.5 L ABG O2 Saturation 96.7 ABG Carboxyhemoglobin 1.20 ABG Methemoglobin 1.4 Edwin Test YES A-a O2 Difference 13.0 Total Hemoglobin 10.9 L Lactate 0.60 Blood Gas Modality ROOM AIR FiO2 % 21.0 Sodium Potassium Chloride Carbon Dioxide Anion Gap BUN Creatinine Estimated GFR/1.73 m2 BUN/Creatinine Ratio Glucose Calculated Osmolality Calcium Magnesium Total Bilirubin AST ALT Alkaline Phosphatase Creatine Kinase Troponin T Npd-M-Ejdmkwsxkjp Pept Total Protein Albumin Globulin Albumin/Globulin Ratio Lipase TSH Plasma/Serum Ethyl Alc Orders Category Date Time Status Nursing- Obtain EKG once Care 02/09/19 05:45 Active Saline Loc NOW Care 02/09/19 05:45 Active CHEST-PORTABLE [RAD] Stat Exams 02/09/19 05:47 Taken ABG [RESP] Routine Lab 02/09/19 06:01 Completed ALCOHOL BLOOD Stat Lab 02/09/19 05:25 Completed CBC WITH ELECTRONIC DIFF [HEME] Stat Lab 02/09/19 05:25 Completed CK PROFILE [SP CHEM] Stat Lab 02/09/19 05:25 Completed COMPREHENSIVE METABOLIC PANEL [CHEM] Stat Lab 02/09/19 05:25 Completed D-DIMER [COAG] Stat Lab 02/09/19 05:25 Received LIPASE [CHEM] Stat Lab 02/09/19 05:25 Completed MAGNESIUM [CHEM] Stat Lab 02/09/19 05:25 Completed PRO B-NATRIURETIC PEPTIDE Stat Lab 02/09/19 05:25 Completed PROTIME WITH INR [COAG] Stat Lab 02/09/19 05:25 Received TROPONIN T Stat Lab 02/09/19 05:25 Completed TSH Stat Lab 02/09/19 05:25 Completed URINALYSIS W/POSS RFLX CULT [URINALYSIS] Stat Lab 02/09/19 05:47 Uncollected URINE DRUG SCREEN Stat Lab 02/09/19 05:47 Uncollected 0.9% Sodium Chloride Inj [Ns] 1,000 ml Med 02/09/19 05:48 Active IV 999 mls/hr Aspirin Med 02/09/19 05:59 Discontinued 325 mg PO NOW ONE Diphenhydramine [Benadryl] Med 02/09/19 05:48 Discontinued 25 mg IV NOW ONE Haloperidol Lactate [Haldol] Med 02/09/19 05:48 Discontinued 2 mg IV NOW ONE Lorazepam [Ativan] Med 02/09/19 05:48 Discontinued 0.5 mg IV NOW ONE Orphenadrine [Norflex] Med 02/09/19 06:46 Once 60 mg IV NOW ONE EKG [EKG] Stat Ther 02/09/19 05:45 Ordered Result Diagrams: 02/09/19 05:25 02/09/19 05:25 - REASSESSMENT Reassessment #1 Time Reassessed: 06:13 Status: improving (GIven ASA in case of Cardiac Event. Given Haldol, benadryl, ativan for agitation/RLS/odd behavior) Reassessment #2 Time Reassessed: 06:47 Status: worsening (agitated, again, moving legs all over, can't remain still. Awaiting UA and some chemistries. WIll try to IV norflex.) - EKG 1 Time of EKG reading by physician:: 05:25 EKG Read and Signed by:: Lobo Howe EKG Interpretation (*Must complete 3 of following elements*): Abnormal Rate: 84 Rhythm: NSR [place]: left QRS: LBB, LVH MD Interval: normal ST Wave: non-specific ST changes Prior EKG Comparison: unchanged from prior (09/11/18) Comments: Significant baseline artifact - XRAY 1 XRAY Study: Chest Impression: Abnormal (Read by me at [id number], borderline CM, no acute infiltrates, chronic granulmoatous disease) - CONSULTS/PCP/HOSPITALIST Notification #1 *Consult/PCP/Hospitalist*: Craol Pederson Time Discussed: 09:20 Consult Disposition: Will see in ED, Admit - CHANGE OF SHIFT REPORT (ED Provider) 1 Report Given and Care Transferred to:: Dr. Flores Time of Transfer: 07:00 Items Pending: Labs, Pain Control Departure - Departure Date of Disposition Decision: 02/09/19 Time of Disposition Decision: 09:21 DIAGNOSIS: Chest pain, Shortness of breath, Elevated d-dimer Disposition: ADMITTED INPATIENT 09 Certified Medical Emergency: Emergent Condition: Fair Referrals and Follow-Ups: Jessica Restrepo MD [Primary Care Provider] - - Critical Care Note This patient required my direct & personal management of CC.: No Attestation - Physician/ ARNOLDO Attestation Patient care was provided by Advanced Practice Provider:: No The physician spent face to face time with patient:: Yes Advanced Practice Provider documentation review:: Supervising physician onsite and consulted in the evaluation and care of this patient. The physician did have a face to face encounter with the patient.
[2019-02-09] MEDS ORDERED: ATIVAN IV ONE ×2 (05:48→14:26)
[2019-02-09] MEDS ORDERED: BENADRYL IV ONE (05:48)
[2019-02-09] MEDS ORDERED: NS 1,000 ML IV ONE (05:48)
[2019-02-09] MEDS ORDERED: HALDOL IV ONE (05:48)
[2019-02-09] MEDS ORDERED: ASPIRIN PO ONE (05:59)
[2019-02-09 06:13] LABS: ALLEN TEST YES; BLOOD TYPE ARTERIAL; HCO3-(ACT) 29.6 mmoll (20.0-26.0); METHB 1.4 % (0.0-1.5); O2(CT) 14.5 mL/dL (15.0-23.0); O2HB 94.2 % (95.0-99.0); PCO2(98.6) 50 mmHg (35-45); PO2(98.6) 74 mmHg (60-100); SAMPLE BLOOD; SAO2 96.7 % (95.0-100.0); THB 10.9 g/dL (11.5-17.4); pH(98.6) 7.41 (7.35-7.45)
[2019-02-09 06:14] LABS: MODALITY ROOM AIR
[2019-02-09 06:16] LABS: BASO# 0.03 X1000 (0.0-0.2); BASO% 0.4 % (0.0-0.8); EOS# 0.33 X1000 (0.0-0.7); EOS% 4.3 % (0.0-10.0); HEMATOCRIT 34.9 % (37.0-47.0); HEMOGLOBIN 11.3 g/dL (12.0-16.0); IMM GRAN# 0.02 X1000 (0.0-0.04); IMM GRAN% 0.3 % (0.0-0.5); LYMPH# 2.88 X1000 (1.2-3.4); LYMPH% 37.8 % (20.5-51.1); MCH 29.4 PG (27-31); MCHC 32.4 g/dL (33-37); MCV 90.9 FL (81-99); MONO# 0.75 X1000 (0.11-0.59); MONO% 9.9 % (1.7-9.3); MPV 9.7 FL (7.4-10.4); NEUT% 47.3 % (42.2-75.2); PLT 236 X1000 (130-400); RBC 3.84 XMIL (4.2-5.4); WBC 7.61 X1000 (4.8-10.8)
[2019-02-09 06:34] LABS: ALB/GLOB RATIO 1.8; CALCIUM 9.1 mg/dL (8.8-10.2); CREATININE 1.2 mg/dL (0.5-0.9); MAGNESIUM 2.2 mg/dL (1.5-2.7); POTASSIUM 4.8 mmol/L (3.5-5.1); TOTAL BILIRUBIN 0.17 mg/dL (0.20-1.00); TOTAL PROTEIN 6.2 g/dL (6.3-8.3)
[2019-02-09] MEDS ORDERED: NORFLEX IV ONE (06:46)
--- NOTE | 2019-02-09 06:53 | EKG Report ---
Test Performed on : 02/09/2019 05:25:07 AM Test Reason : CP Blood Pressure : / mmHG Vent. Rate : 084 BPM Atrial Rate : 087 BPM P-R Int : 000 ms QRS Dur : 132 ms QT Int : 442 ms P-R-T Axes : 000 -27 084 degrees QTc Int : 522 ms Undetermined rhythm Left bundle branch block Abnormal ECG When compared with ECG of 11-SEP-2018 18:12, Current undetermined rhythm precludes rhythm comparison, needs review T wave inversion less evident in Lateral leads Unconfirmed Result
--- NOTE | 2019-02-09 07:07 | Diag Imaging Result Doc PS360 ---
CHEST-PORTABLE - 02/09/2019 INDICATION: cp COMPARISON: 09/11/2018 FINDINGS: Lung volumes are much lower. There are some faint atelectasis in the lung bases. No definite infiltrates. Heart size and pulmonary vascularity is normal. IMPRESSION: Low lung volumes with mild bibasilar atelectasis. Electronically signed by Rohan Hughes 02/09/2019 7:05 AM
[2019-02-09 07:26] LABS: URINE SOURCE CLEAN CATCH
[2019-02-09 07:32] LABS: BILIRUBIN URINE NEGATIVE (NEGATIVE); BLOOD URINE NEGATIVE (NEGATIVE); COLOR YELLOW; GLUCOSE URINE NEGATIVE (NEGATIVE); KETONE URINE NEGATIVE (NEGATIVE); LEUKOCYTES URINE MODERATE (NEGATIVE); NITRITE URINE NEGATIVE (NEGATIVE); PH URINE 6.5; PROTEIN URINE NEGATIVE (NEGATIVE); SP GRAVITY URINE 1.013; TURBIDITY URINE CLEAR (CLEAR); UROBILINOGEN URINE NORMAL (NORMAL)
[2019-02-09 07:33] LABS: UR EPITHELIAL CELLS <10 /HPF (<10); URINE BACTERIA NEGATIVE /HPF; URINE RBC <10 /HPF (<10); URINE WBC <10 /HPF (<10)
[2019-02-09 07:43] LABS: UR AMPHETAMINES QUAL PRESUMPTIVE POSITIVE (NONE DETECT); UR BARBITUATES QUAL NONE DETECTED (NONE DETECT); UR BENZODIAZEPIN QUAL NONE DETECTED (NONE DETECT); UR CANNABINOIDS QUAL NONE DETECTED (NONE DETECT); UR COCAINE QUAL NONE DETECTED (NONE DETECT); UR METHADONE QUAL NONE DETECTED (NONE DETECT); UR OPIATES QUAL NONE DETECTED (NONE DETECT); UR OXYCODONE QUAL NONE DETECTED (NONE DETECT); UR PCP QUAL NONE DETECTED (NONE DETECT)
[2019-02-09 08:34] LABS: INR 0.97; PROTIME 13.4 Seconds (11.0-16.0)
--- NOTE | 2019-02-09 10:38 | HISTORY AND PHYSICAL ---
PRIMARY CARE PHYSICIAN: Dr. Restrepo. CHIEF COMPLAINT: Severe restless legs syndrome and right-sided chest pain that was nonradiating. HISTORY OF PRESENTING ILLNESS: This is a 78-year-old female who presents to [facility] with poor history, was kicking her legs up and down, and rocking back and forth, mumbling at times, and somewhat unclear what she was saying. was also not a great historian at the time. She had a "bad spell of restless legs syndrome," according to the , who states this occurs every 3 to 4 weeks, and normally does not last but a couple of hours before she will fall asleep, and then is okay when she wakes up. She is also complaining this time of some right-sided sharp stabbing chest pain that was nonradiating with no associated nausea, vomiting, shortness of breath, or diaphoresis. States she has never had this pain before. It would last for a few seconds and then go away and then come back, so it was very intermittent and scattered. states that she has been taking her medications as prescribed. He also states that last week, she saw her burring wheel operator, Dr. Wagner, with no problems identified at that visit. Workup showed a D-dimer of 0.89. Her BUN is 31, creatinine 1.2. First set of cardiac enzymes was negative. Her chest x-ray showed low lung volumes with mild bibasilar atelectasis. In the emergency room, she was given Norflex 60 mg IV x1, Ativan 0.5 mg IV x1, Haldol 2 mg IV x1, Benadryl 25 mg IV x1. She remains lethargic, but is continuing to have kicking of her legs, raising them, drawing them up to her chest, and rolling from [id number] in the bed, but does not moan in pain at this time, so she will be admitted for further evaluation and treatment. PAST MEDICAL HISTORY: Chorion carcinoma, restless legs syndrome, narcolepsy, and hypothyroidism. PAST SURGICAL HISTORY: Hysterectomy, tonsillectomy, hemorrhoidectomy, and a breast cyst biopsy. FAMILY HISTORY: Diabetes, cervical cancer, and heart disease. SOCIAL HISTORY: She currently lives with her . Denied any tobacco, alcohol, or illicit drug use. ALLERGIES: Pseudoephedrine. HOME MEDICATIONS: She takes BuSpar 15 mg p.o. b.i.d., gabapentin 300 mg p.o. t.i.d., Synthroid 125 mcg p.o. daily, and Requip 3 mg p.o. daily. IMAGING AND LABORATORY DATA: Laboratory data showed a white blood cell count of 7.61, hemoglobin 11.3, hematocrit 34.9, platelets 236,000. PT and INR of 13.4 and 0.97. D-dimer of 0.89. ABG with a pH of 7.41, pCO2 of 50, PO2 of 74, bicarb 29.6, and this was on room air. Sodium 142, potassium 4.8, chloride 105, CO2 of 28, BUN of 31, creatinine 1.2, glucose 91, magnesium 2.2. Cardiac enzymes x1 set was negative. ProBNP of 642. TSH of 0.29. Free T4 of 1.35. Lipase of 48. Urinalysis was negative, except for some moderate leukocytes. Urine drug screen was presumptive positive for amphetamines. She does take Adderall daily. Alcohol showed none detected. EKG showed undetermined rhythm with left bundle branch block at 84. Chest x-ray showed low lung volumes with mild bibasilar atelectasis. REVIEW OF SYSTEMS: She denied any fever, chills, blurred vision, dizziness. She was positive for right-sided chest pain that was nonradiating. Denied any cough or shortness of breath. Denied any abdominal pain, constipation, diarrhea, burning or hurting with urination, and again, she is having a severe episode of restless legs, kicking her legs up, drawing them into her chest, and then rolling [id number] in the bed, but no moaning is noted at this time. PHYSICAL EXAMINATION: VITAL SIGNS: On arrival, she had a temperature of 97.3 degrees, pulse 82, respirations 18, blood pressure 124/80, saturating 98% on room air. GENERAL: This is a 78-year-old female who is lying in the bed, unable to answer questions appropriately, is kicking her legs up and down, drawing her legs to her chest, and then rolling [id number], but no moaning noted at this time. HEENT: Normocephalic, atraumatic. Normal ENT inspection. Oropharynx and nares are clear. Eyes: Pupils are equal, round, and reactive to light and accommodation. Extraocular movements are intact. NECK: Normal inspection. Normal range of motion. LUNGS: Clear to auscultation bilaterally with equal lung expansion and chest wall movement. HEART: Regular rate and rhythm. No murmurs, rubs, or gallops. ABDOMEN: Soft, nontender, nondistended. Bowel sounds are present x4 quadrants. MUSCULOSKELETAL: Unable to assess at this time, but it appears the patient has 5/5 strength. She is kicking both legs up in the air, drawing them up towards her chest, and rolling side to side in the bed. NEUROLOGICAL: The cranial nerves II through XII appear grossly intact. ASSESSMENT: 1. An acute episode of her restless legs syndrome. 2. Chest pain, right-sided. 3. Elevated D-dimer. 4. Mild acute kidney injury. PLAN: She will be admitted to the medical unit, placed on telemetry. Will do serial cardiac enzymes. O2 per protocol. Healthy heart diet. SCDs for DVT prophylaxis. Normal saline at 50 mL an hour. Will check a V/Q scan of her lungs to rule out a PE. Patient not able to participate at this time in a bilateral lower extremity venous Doppler. Hopefully tomorrow we can get that ordered. Check an echocardiogram. Continue home medications as previously identified, and recheck a CBC, BMP, and lipid profile in the a.m. Further orders after seen by attending. Dictated by ZAHEER Mccoy for Wander Pederson MD cc: ZAHEER Mccoy MD Bhavna Gowda, MD
[2019-02-09] MEDS ORDERED: TYLENOL PO PRN (10:49)
[2019-02-09] MEDS ORDERED: NS 1,000 ML IV SCH (10:49)
[2019-02-09] MEDS ORDERED: ZOFRAN IV PRN (10:49)
[2019-02-09 12:11] LABS: CALCIUM 8.9 mg/dL (8.8-10.2); CREATININE 1.2 mg/dL (0.5-0.9); POTASSIUM 4.4 mmol/L (3.5-5.1)
[2019-02-09 12:50] LABS: CK INDEX 2.7 (0.0-2.5); CK-MB 6.02 ng/mL (0.0-5.0)
--- NOTE | 2019-02-09 15:13 | EKG Report ---
Test Performed on : 02/09/2019 2:53:25 PM Test Reason : chest pain Blood Pressure : / mmHG Vent. Rate : 095 BPM Atrial Rate : 095 BPM P-R Int : 164 ms QRS Dur : 138 ms QT Int : 422 ms P-R-T Axes : 092 -46 093 degrees QTc Int : 530 ms Normal sinus rhythm. Possible Left atrial enlargement Left axis deviation Left bundle branch block Abnormal ECG When compared with ECG of 09-FEB-2019 05:25, (Unconfirmed) Previous ECG has undetermined rhythm, needs review Confirmed by Stevan Quinteros MD ([id number]) on 02/13/2019 4:09:06 PM
[2019-02-09] MEDS: BUSPAR PO SCH ×2 (16:53→22:05)
[2019-02-09] MEDS: GRALISE PO SCH ×2 (16:54→18:18)
[2019-02-09] MEDS: REQUIP PO SCH (16:54)
--- NOTE | 2019-02-09 17:23 | CARDIOLOGY CONSULTATION ---
DATE: 02/09/2019 REASON FOR CONSULT: Cardiology was consulted for chest pain. HISTORY OF PRESENT ILLNESS: Ms. Payal Simeon is a 78-year-old lady with severe restless legs syndrome, came to the emergency room with chest pain. She had an electrocardiogram done which revealed left bundle branch block which is old. Patient states that her pain started in the right groin area, subsequently radiated up to the right hypochondrium, and has had severe pain in the right hypochondrium and right chest area, as well as radiating to the back of her chest. She is confused. History is not forthcoming. Her was with her and I discuss this with him as well. Her says whenever she has significant restless legs syndrome she tends to double down and has spasms in her legs as well. She does not complain of retrosternal chest pain. There is no associated nausea, vomiting, or diaphoresis. She has been seen in our office and has had cardiac testing done. Her PET scan on 04/13/2018 did not reveal any evidence of ischemia. Left ventricular ejection fraction on 04/13/2018 was ejection fraction of 45%. There is no significant valvular abnormality. REVIEW OF SYSTEMS: A 14 point review of systems was obtained from discussing with the patient and her family. There is no focal weakness to suggest a CVA or TIA. She has no dysuria or hematuria.Respiratory System: There is no history of cough, expectoration, hemoptysis. There is no history of fevers or chills. PAST MEDICAL HISTORY: 1. Restless legs syndrome. 2. Narcolepsy. 3. Hypothyroidism. 4. Chronic left bundle branch block. 5. Renal insufficiency. 6. Peripheral neuropathy. 7. Osteoarthritis. 8. History of colitis in the past. HOME MEDICATIONS: Include BuSpar 15 mg p.o. b.i.d., gabapentin 30 mg p.o. t.i.d., Synthroid 125, Requip. PHYSICAL EXAMINATION: Vital Signs: Blood pressure was 178/69. Neck: Jugular venous pressure was normal. Cardiovascular system: First and second heart sounds were heard. There was no S3 gallop. Respiratory System: Normal air entry. There are no crepitations or rhonchi. Abdomen: Soft. There was tenderness in the right hypochondrium and tenderness to touch in the right chest wall area. Bowel sounds were heard. Central nervous system: Patient was somnolent. Was moving all 4 extremities. Detailed central nervous system examination not performed. LABORATORY EXAMINATION: D-dimer elevated at 0.89. Two sets of troponin were negative. Sodium 142, potassium 4.8, BUN 31, creatinine 1.2. Lipase was normal. TSH was unremarkable. Liver function test normal. Chest x-ray: Low lung volumes, basilar atelectasis. ASSESSMENT AND PLAN: Ms. Payal Simeon is a 78-year-old lady who comes with abdominal discomfort, right hypochondrium pain, in addition to discomfort in the right side of her chest as well, radiating to the back. From a cardiac standpoint, she has left bundle branch which is chronic. Her PET scan was unremarkable on 04/13/2018 (cardiac PET). Echocardiogram revealed LV dysfunction. From a cardiac standpoint, two sets of cardiac enzymes are negative. I suspect this is noncardiac etiology of chest pain. Would recommend abdominal ultrasound to rule out gallbladder disease. She is going to have a V/Q scan done given her elevated D-dimers to rule out pulmonary embolism. Thank you for the consult. We will follow hospital course. cc: Arpit Correa MD
--- NOTE | 2019-02-09 20:18 | HISTORY AND PHYSICAL ---
SUBJECTIVE: I am seeing her today and she is describing right-sided chest pain. She does see Dr. Medina as an outpatient, although, I do not see any visits, or any testing or anything but in any case, we were called see bedside this afternoon because she had chest pain, kind a right-sided sharp. We have been trying to get workup for an elevated D-dimer because the pain is atypical, but I cannot clearly see that she has had a cardiac workup either. So, echocardiogram has been ordered. She may either need a stress test or left heart catheterization. So, we will do serial enzymes and get Cardiology opinion about stress test versus left heart catheterization and continue to follow, pursue VTE workup. Her exam is really unremarkable. Her EKG does show a left bundle branch block, but that has been there since at least September of 2008. cc: Wander Pederson MD
[2019-02-09 20:22] LABS: CK INDEX 2.7 (0.0-2.5); CK-MB 5.17 ng/mL (0.0-5.0)
[2019-02-09] MEDS ORDERED: SODIUM CHLORIDE 0.9% INJ PRN (20:24)
[2019-02-09] MEDS: MORPHINE IV PRN (20:34)
[2019-02-09] MEDS: PHENERGAN IV PRN (20:34)
[2019-02-10 03:31] LABS: EOS# 0.04 X1000 (0.0-0.7); EOS% 1.7 % (0.0-10.0); HEMATOCRIT 49.3 % (37.0-47.0); HEMOGLOBIN 16.2 g/dL (12.0-16.0); LYMPH# 0.62 X1000 (1.2-3.4); LYMPH% 26.8 % (20.5-51.1); MCH 30.2 PG (27-31); MCHC 32.9 g/dL (33-37); MCV 91.8 FL (81-99); MONO# 0.25 X1000 (0.11-0.59); MONO% 10.8 % (1.7-9.3); MPV 9.3 FL (7.4-10.4); NEUT% 60.7 % (42.2-75.2); PLT 220 X1000 (130-400); RBC 5.37 XMIL (4.2-5.4); RDW 13.6 % (11.5-14.5); WBC 2.31 X1000 (4.8-10.8)
[2019-02-10] MEDS ORDERED: CALMOSEPTINE OINTMENT TOP PRN (04:52)
[2019-02-10] MEDS ORDERED: OFIRMEV 1000 MG/ISOTONIC SOLN 1,000 MG/100 ML BOTTLE IV ONE (05:00)
[2019-02-10] MEDS: PRILOSEC PO SCH (06:05)
[2019-02-10] MEDS: SYNTHROID PO SCH (06:06)
[2019-02-10] MEDS ORDERED: SYNTHROID PO SCH (07:00)
--- NOTE | 2019-02-10 07:50 | ECHO REPORT ---
ORDER DATE: 02/09/2019 MEASUREMENTS: 1. Aortic root 3.1. 2. Left atrium 3.6. SUMMARY: 1. Technically difficult study due to limited acoustic window quality. 2. Aortic valve appears without evidence of structural abnormality and opens adequately on 2- dimensional images. Peak gradient across the aortic valve is less than 10 mmHg. Mitral and tricuspid valves are without evidence of structural abnormality while pulmonic valve is not well demonstrated. There is moderate mitral regurgitation and mild tricuspid regurgitation. Estimated systolic PA pressure by Doppler is 60 mmHg suggesting moderate pulmonary hypertension. Aortic root is normal in size. 3. Normal left ventricular dimensions suggested. Estimated left ejection fraction approximately 30%. Global hypokinesis is demonstrated with abnormal septal motion possibly related to interventricular conduction abnormality. Left atrium, right atrium, right ventricle are normal size with grossly preserved right ventricular systolic function. 4. No pericardial effusion. 5. Appearance of inferior vena cava suggests normal central venous pressure. CONCLUSIONS: 1. Technically difficult study. 2. Moderate mitral regurgitation. 3. Mild tricuspid regurgitation with moderate pulmonary hypertension by Doppler. 4. Estimated left ventricular ejection fraction of approximately 30%. Abnormal septal wall motion demonstrated possibly related to interventricular conduction abnormality. 5. If clinically indicated, consider repeat echocardiography with intravenous contrast agent such as Optison. cc: MD Carol Hubbard CRNP
--- NOTE | 2019-02-10 08:19 | Diag Imaging Result Doc PS360 ---
EXAM: CHEST-2 VIEWS 02/10/2019 HISTORY: Fever, Elevated Heart Rate TECHNIQUE: PA and lateral chest COMMENT: The inspiration is suboptimal. Compared to 02/09/2019 there has been no significant change in the appearance of the chest. IMPRESSION: No acute disease Electronically signed by Drew Lewis 02/10/2019 8:17 AM
--- NOTE | 2019-02-10 08:29 | Diag Imaging Result Doc PS360 ---
LUNG SCAN / VQ - 02/09/2019 INDICATION: Elevated ddimer TECHNIQUE: 39.3 mCi of DTPA was used for inhalation. 5.8 mCi of MAA was used for injection. COMPARISON: Chest x-ray from 02/09/2019 FINDINGS: There is normal localization pattern of the radiotracer's. There is no evidence of pulmonary perfusion defect. IMPRESSION: Negative for pulmonary embolism. Electronically signed by Rohan Hughes 02/10/2019 8:27 AM
[2019-02-10] MEDS: MAXIPIME 2 GM in NS 100 ML IV SCH (10:15)
[2019-02-10 11:44] LABS: ALB/GLOB RATIO 1.2; ALBUMIN 3.6 g/dL (3.5-5.0); CALCIUM 8.3 mg/dL (8.8-10.2); CREATININE 1.8 mg/dL (0.5-0.9); POTASSIUM 4.6 mmol/L (3.5-5.1); TOTAL BILIRUBIN 0.73 mg/dL (0.20-1.00); TOTAL PROTEIN 6.7 g/dL (6.3-8.3)
--- NOTE | 2019-02-10 12:54 | Diag Imaging Result Doc PS360 ---
US GB < RUQ (LIMITED) - 02/10/2019 INDICATION: elevated liver enzymes TECHNIQUE: COMPARISON: CT from 11/18/2013 FINDINGS: The right kidney is very atrophic, stable from prior. The right kidney measures 7 x 2.8 cm. The gallbladder is somewhat distended. The gallbladder measures about 9.4 x 3.9 cm. No gallstones. No surrounding fluid. Common bile duct measures 4 mm. The liver and pancreas are normal. Aorta, IVC, and main portal vein are patent. IMPRESSION: 1. Mildly distended gallbladder, nonspecific. 2. Stable atrophic right kidney. Electronically signed by Rohan Hughes 02/10/2019 12:51 PM
--- NOTE | 2019-02-10 13:10 | Diag Imaging Result Doc PS360 ---
CT ABD/PELVIS W/ORAL CONT ONLY - 02/10/2019 INDICATION: pain, diarrhea COMPARISON: 11/18/2013 FINDINGS: The lung bases are clear and the heart size is normal. There is a rectal tube in place. The colon is fluid-filled. There is mild distention of the stomach with gas and fluid. No small bowel obstruction or inflammation. No free air or free fluid. Uterus is absent. Urinary bladder is normal. The right kidney is atrophic. Otherwise all abdominal organs are normal. The gallbladder is top normal with no calcified gallstones. There is rotary scoliosis and S shaped scoliosis of the thoracic lumbar spine. There is advanced spondylosis. No acute bony lesions. IMPRESSION: 1. Distention of the stomach suggesting gastroparesis or gastric outlet obstruction. 2. Fluid-filled colon. Rectal tube in place. This exam was performed using automated exposure control, adjustment of mA or kV according to patient size, and/or use of iterative reconstruction technique Electronically signed by Rohan Hughes 02/10/2019 1:08 PM
[2019-02-10] MEDS: FLAGYL 500 MG/NS 500 MG/100 ML IVPB IV SCH ×2 (13:14→20:20)
[2019-02-10] MEDS: CYMBALTA PO SCH (16:15)
[2019-02-10] MEDS: BUSPAR PO SCH ×2 (16:15→20:19)
[2019-02-10] MEDS: REQUIP PO SCH (16:16)
[2019-02-10] MEDS: ASPIRIN EC PO SCH (16:17)
[2019-02-10] MEDS: NS 1,000 ML IV SCH (18:23)
[2019-02-10] MEDS: PHENERGAN IV PRN (18:24)
--- NOTE | 2019-02-10 20:09 | PROGRESS NOTE ---
DATE: 02/10/2019 SUBJECTIVE: Patient has no major complaints. OBJECTIVE: Blood pressure 100/46, heart rate of 108, respiratory rate 18, temperature 97.6 degrees, 88% on room air, 93% on 2 L.Cardiovascular: Regular rate and rhythm. Pulmonary: Bilateral breath sounds. Clear to auscultation. Gastrointestinal: Soft. She had some tenderness. No rebound. No guarding. LABORATORY DATA: White count is 2, hemoglobin and hematocrit 16 and 49, platelets were normal at 220,000. BUN and creatinine up to 44 and 1.8. Normal liver enzymes. PROBLEM LIST: 1. Nausea, vomiting, diarrhea, with unclear source, but high fever. Her apparently had similar nausea and vomiting symptoms, so this may be as simple as a gastroenteritis, but could be something else. With her high fever and debilitated state, I have started antibiotics. Stool cultures are pending. We will get a GI consult. Her CT shows severe gastric distention consistent with a gastric outlet or gastroparesis-type situation. She may end up needing endoscopy. We will continue to follow. Her gallbladder is somewhat abnormal. Unclear what the source is. She continues to have pain in her right upper quadrant. We will get a surgical consult and follow. This may just be a simple gastroenteritis. 2. Left bundle. Reviewing records per Cardiology. Appreciate Dr. Correa's input. The patient has known left bundle and then she had a cardiac stress test in 2018, which was negative. However, her echocardiogram shows that her EF has dropped to 30%, which is a change. We will be very cautious with hydration, but right now, she is not eating and drinking very much, so we will have to monitor that closely. 3. Disposition. Pending her clinical status. cc: Wander Pederson MD
[2019-02-10] MEDS: NEURONTIN PO SCH (20:20)
[2019-02-11] MEDS: REQUIP PO SCH ×2 (00:23→21:05)
[2019-02-11] MEDS: FLAGYL 500 MG/NS 500 MG/100 ML IVPB IV SCH ×4 (03:46→21:05)
--- NOTE | 2019-02-11 03:51 | CONSULTATION ---
DATE OF CONSULTATION: 02/10/2019 Ms Payal Simeon is a 78-year-old white female who was admitted with weakness and intermittent right chest or upper abdominal pain. Evidently, she has had enormous stress in her family the last year. She also has a history of narcolepsy, and if she takes her evening medications she has restless legs, and she is unable to rest, and she has been working many hours into the night, and the family says sometimes to 11 p.m. He found her and she could not stand, and he called the ambulance to bring her to the emergency department on 02/09/2019. We were asked to evaluate her to rule out gallbladder disease. PAST MEDICAL HISTORY: Narcolepsy, restless legs syndrome, hypothyroidism. PAST SURGICAL HISTORY: Hysterectomy, tonsillectomy, hemorrhoidectomy, and breast cyst biopsy. FAMILY HISTORY: Diabetes, cervical cancer, heart disease. SOCIAL HISTORY: She lives with her . She has been 59 years. She has significant stress in her family, she has custody and is taking care of grandchildren. She recently had one of her daughters . One other daughter has been hospitalized with infection and she got over it. Evidently, she has 1 of her family members that is battling alcoholism. One of her grandchildren was recently in a motor vehicle crash. ALLERGIES: Pseudoephedrine. HOME MEDICATIONS: BuSpar, gabapentin, Synthroid, and Requip. REVIEW OF SYSTEMS: Since her hemorrhoidectomy about 20 years ago, she has had anal stenosis and some anal incontinence. She states that she has diarrhea and sometimes she cannot feel it, and can be working and soil her underwear. She has intermittent right chest pain, which she says is severe when it comes on. She describes it around her right breast. PHYSICAL EXAMINATION: General: On exam, Ms. Payal Simeon is a slim, older white female, who intermittently awakens and talks to me. She has a rectal tube in place. She is cooperative. She has no focal deficits. HEENT: No jaundice. No oral lesions. No cervical or supraclavicular lymphadenopathy. Cardiovascular: Her heart is tachycardic but has a regular rate. Lungs: Clear. Breasts: No obvious breast mass. Gastrointestinal: Abdomen is mostly soft. There is no scar. No evidence of hernia. There was no tenderness in her right upper quadrant on palpation. I could palpate no mass. She had no costovertebral tenderness. I did not do rectal or vaginal exam. Extremities: She did have femoral pulses. She has no peripheral edema. DIAGNOSTICS: I have reviewed her CT scan and her ultrasound, and there does not appear to be acute cholecystitis or gallstones. Her liver function tests are normal. ASSESSMENT: She does have a dilated stomach and with the stress that she has gone through, we need to rule out peptic ulcer disease or even gastric outlet obstruction from chronic scarred ulcer. Gastroenterology has already been consulted. She also has problems with diarrhea and the etiology is unclear. PLAN: I agree with hydration. She is receiving IV antibiotics prophylactically. We will get a flat and upright abdominal film so that we can follow the oral contrast that she received with her CT scan. We will not plan on cholecystectomy at this time. cc: Lola Robbins MD
[2019-02-11] MEDS: NS 1,000 ML IV SCH (05:00)
[2019-02-11 06:31] LABS: CALCIUM 8.5 mg/dL (8.8-10.2); CREATININE 2.1 mg/dL (0.5-0.9)
[2019-02-11] MEDS: PRILOSEC PO SCH (06:31)
[2019-02-11] MEDS: SYNTHROID PO SCH (06:31)
[2019-02-11 06:47] LABS: BASO# 0.01 X1000 (0.0-0.2); BASO% 0.1 % (0.0-0.8); EOS# 0.22 X1000 (0.0-0.7); EOS% 2.8 % (0.0-10.0); HEMATOCRIT 42.5 % (37.0-47.0); HEMOGLOBIN 13.8 g/dL (12.0-16.0); IMM GRAN# 0.04 X1000 (0.0-0.04); IMM GRAN% 0.5 % (0.0-0.5); LYMPH# 1.37 X1000 (1.2-3.4); LYMPH% 17.4 % (20.5-51.1); MCH 29.4 PG (27-31); MCHC 32.5 g/dL (33-37); MCV 90.4 FL (81-99); MONO# 0.86 X1000 (0.11-0.59); MONO% 10.9 % (1.7-9.3); MPV 9.5 FL (7.4-10.4); NEUT# 5.36 X1000 (1.4-6.5); NEUT% 68.3 % (42.2-75.2); PLT 226 X1000 (130-400); RDW 13.6 % (11.5-14.5); WBC 7.86 X1000 (4.8-10.8)
--- NOTE | 2019-02-11 09:12 | Diag Imaging Result Doc PS360 ---
EXAM: FLAT/UPRIGHT ABD/1 VIEW CHEST HISTORY: gastroparesis TECHNIQUE: Flat and upright with chest, three views COMPARISON: 02/10/2019 FINDINGS: The lungs are well expanded. No pneumonia. No cardiomegaly. No free air beneath the diaphragm. No organomegaly. No bowel obstruction. The stomach is not overly distended. Moderate scoliosis. No abnormal abdominal calcification. There are several pelvic phleboliths. IMPRESSION: No acute abnormality. Electronically signed by Lalit Grace 02/11/2019 9:09 AM
[2019-02-11] MEDS: ASPIRIN EC PO SCH (09:20)
[2019-02-11] MEDS: NEURONTIN PO SCH ×3 (09:22→17:20)
[2019-02-11] MEDS: BUSPAR PO SCH ×2 (09:22→21:05)
[2019-02-11] MEDS: CYMBALTA PO SCH (09:22)
[2019-02-11] MEDS: MAXIPIME 2 GM in NS 100 ML IV SCH ×4 (09:22→22:05)
--- NOTE | 2019-02-11 13:06 | PROGRESS NOTE ---
DATE: 02/11/2019 SUBJECTIVE: Ms. Payal Simeon is a 78-year-old white female who was admitted on 02/09/2019 with weakness and right upper quadrant pain. We were asked to see her about possible gallbladder disease. Her liver function tests have been normal. An ultrasound showed no stones. CT scan showed no obvious inflammation around the gallbladder. However, she looks ill. She has had multiple cultures which include a stool culture. There was no evidence of parasites. There was no evidence of Clostridium difficile. Blood cultures were negative. Urine culture was negative. Her creatinine continues to rise on a daily basis since her admission is now 2.1. That is up from 1.8 yesterday. She has a rectal tube in place and has had diarrhea. She has had no nausea or vomiting. She admits to no abdominal pain. Today, her abdomen is slightly distended but not tightly so and flat and upright abdominal films showed an abnormal gas throughout her bowel but no evidence of obstruction. OBJECTIVE: Her heart rate is 83, blood pressure 131/54. O2 saturation 100%. She is afebrile. She is on Maxipime and Flagyl for IV antibiotics. LABORATORY DATA: Her white blood cell count is normal. Hematocrit is 42%. PLAN: Continue supportive care with IV fluids and IV antibiotics. There is nothing I can tell at this point that surgically needs to be done. I will follow along with you. cc: Lola Robbins MD
--- NOTE | 2019-02-11 14:56 | PROGRESS NOTE ---
DATE: 02/11/2019 SUBJECTIVE: Patient has no major complaints. OBJECTIVE: Blood pressure is 149/61, heart rate 77, respiratory rate 20, temperature 97.7 degrees, 100% on room air.Cardiovascular: Regular rate and rhythm. Pulmonary: Bilateral breath sounds clear to auscultation. GI: Soft, nontender, nondistended. Bowel sounds are positive. LABORATORY DATA: Unfortunately her creatinine is worsened. Her creatinine is up to 2.1 by hydration. BUN of 50. Rest of electrolytes look okay. White count is up to 7, hemoglobin and hematocrit 13 and 42, platelets 226. Her stool studies are really unremarkable except she has some white blood cells, but the C. difficile which we have done 3 tests now, 2 toxins, 1 antigen is negative. I think the bowel movements have improved. Nausea and vomiting have improved. PROBLEM LIST: 1. Nausea, vomiting, diarrhea certainly could be something as simple as enteritis. Workup is negative. She did have a fairly high fever yesterday morning but she has not had a fever in 24 hours and really unclear what her preliminary issue was but we will continue to monitor. Her gallbladder is distended. Surgery is following along but no evidence of emergent need for surgery. 2. Left bundle branch block. She has known left bundle. However, her EF has dropped and unclear what the source of that is. I may have Cardiology re-evaluate her, just because of that issue. 3. Acute kidney injury. Will continue gentle hydration, especially in the setting of having heart failure, and monitor her renal function ins and outs. cc: Wander Pederson MD
--- NOTE | 2019-02-11 19:11 | Diag Imaging Result Doc PS360 ---
EXAM: CT THORAX W/O CONTRAST HISTORY: lung mass TECHNIQUE: Emergency CT of the chest without contrast COMPARISON: None. FINDINGS: No pleural effusions. The heart is mildly prominent. No thoracic aortic aneurysm. No enlarged lymph nodes. There is apical scarring. No consolidation. No bronchiectasis. Minimal basilar atelectasis. No lung mass. Mild scoliosis. IMPRESSION: No lung mass. This exam was performed using automated exposure control, adjustment of mA or kV according to patient size, and/or use of iterative reconstruction technique. Electronically signed by Lalit Grace 02/11/2019 7:09 PM
[2019-02-12] MEDS: FLAGYL 500 MG/NS 500 MG/100 ML IVPB IV SCH ×4 (03:10→19:59)
[2019-02-12] MEDS: PRILOSEC PO SCH (06:03)
[2019-02-12] MEDS: SYNTHROID PO SCH (06:03)
[2019-02-12 06:48] LABS: HEMATOCRIT 37.1 % (37.0-47.0); HEMOGLOBIN 12.2 g/dL (12.0-16.0); MCH 29.2 PG (27-31); MCHC 32.9 g/dL (33-37); MCV 88.8 FL (81-99); MPV 9.7 FL (7.4-10.4); RBC 4.18 XMIL (4.2-5.4); RDW 13.2 % (11.5-14.5); WBC 6.87 X1000 (4.8-10.8)
[2019-02-12 07:10] LABS: CALCIUM 7.7 mg/dL (8.8-10.2); CREATININE 1.3 mg/dL (0.5-0.9); POTASSIUM 2.6 mmol/L (3.5-5.1)
[2019-02-12 07:10] LABS: UR CREAT RANDOM 122.7 mg/dL (11-20); UR PROT RANDOM 48.1 mg/dL
--- NOTE | 2019-02-12 09:01 | PROGRESS NOTE ---
DATE: 02/12/2019 SUBJECTIVE: Ms. Payal Simeon is a 78-year-old white female who was admitted with weakness and right sided chest or abdominal pain, diarrhea and infection of unknown origin with fever. Clinically, she is much better today. She seems more awake and more comfortable. Her heart rate is 62, blood pressure 149/52, O2 saturation 100%. She still has a rectal tube in place and it seems like she is still having some diarrhea. She says her right chest and her abdominal pain is much improved. She is on multiple IV antibiotics. Her white blood cell count is normal. Hematocrit is stable at 37%. Her BUN and creatinine are 27 and 1.3, which are improved. Her potassium is 2.6. A chest CT was done yesterday and did not suggest any infection or lung mass. PLAN: I would continue supportive care with IV antibiotics. Consider removing the rectal tube, increase her activity. She continues to have no appetite. She is drinking Coke but not eating much of her diet. cc: Lola Robbins MD
[2019-02-12] MEDS: NEURONTIN PO SCH ×3 (09:49→20:00)
[2019-02-12] MEDS: CYMBALTA PO SCH (09:49)
[2019-02-12] MEDS: ASPIRIN EC PO SCH (09:50)
[2019-02-12] MEDS: BUSPAR PO SCH ×2 (09:50→20:00)
[2019-02-12] MEDS ORDERED: KLOR-CON PO ONE (11:01)
[2019-02-12] MEDS: MAXIPIME 2 GM in NS 100 ML IV SCH ×2 (11:01→22:00)
[2019-02-12] MEDS: POTASSIUM CHLORIDE 20 MEQ/SWI 20 MEQ/100 ML IVPB IV SCH ×2 (11:54→16:23)
[2019-02-12] MEDS ORDERED: NS 500 ML ONE (12:54)
--- NOTE | 2019-02-12 16:48 | PROGRESS NOTE ---
DATE: 02/12/2019 SUBJECTIVE: The patient is sitting up in bed. She is making sense. No more emesis. Diarrhea persists though, but she has a rectal tube in place so I am not sure how much she is putting out. Reportedly 4500 mL yesterday. I am not sure I believe that but it is possible I guess, 4 L of stool but only 800 out since yesterday. So in any case, it looks more like a gastroenteritis type picture. OBJECTIVE: Vital signs: Blood pressure is 143/69, heart rate 67, respiratory rate of 20, temperature 97.8 degrees, 95 on room air. Cardiovascular: Regular rate and rhythm. Pulmonary: Bilateral breath sounds. Clear to auscultation. GI: Soft, nontender, nondistended. Bowel sounds are positive. PROBLEM LIST: 1. Nausea, vomiting, diarrhea. Not really sure what is the etiology. She does have heme- positive stools but she has frequent stools. GI consult is still pending. 2. Acute kidney injury. That seems to be better. Her creatinine has come down to 1.3. I am not going to push a lot of IV fluids on her because she has heart failure with an EF of 30%. 3. Left bundle branch block and new congestive heart failure. I am going to have Cardiology re- evaluate her tomorrow. I think Dr. Correa saw her previously. 4. Acute kidney injury. As described. 5. Hypokalemia. We will supplement and follow. DISPOSITION: Pending her clinical status. She is improved today, although unclear what all of her issues have been up until this point but we will continue to follow. cc: Wander Pederson MD
[2019-02-12] MEDS: IMODIUM PO PRN (17:24)
[2019-02-12] MEDS: REQUIP PO SCH (19:59)
[2019-02-12] MEDS: QUESTRAN PO SCH (20:00)
[2019-02-13] MEDS: FLAGYL 500 MG/NS 500 MG/100 ML IVPB IV SCH ×4 (03:12→20:45)
[2019-02-13] MEDS: PRILOSEC PO SCH (06:24)
[2019-02-13] MEDS: SYNTHROID PO SCH (06:24)
[2019-02-13 07:35] LABS: HEMATOCRIT 37.1 % (37.0-47.0); HEMOGLOBIN 12.2 g/dL (12.0-16.0); MCH 29.3 PG (27-31); MCHC 32.9 g/dL (33-37); MPV 9.7 FL (7.4-10.4); RBC 4.17 XMIL (4.2-5.4); RDW 13.4 % (11.5-14.5); WBC 8.09 X1000 (4.8-10.8)
[2019-02-13 07:59] LABS: CALCIUM 8.5 mg/dL (8.8-10.2); CREATININE 1.2 mg/dL (0.5-0.9); POTASSIUM 3.5 mmol/L (3.5-5.1)
[2019-02-13] MEDS: NEURONTIN PO SCH ×3 (08:31→18:58)
[2019-02-13] MEDS: QUESTRAN PO SCH (08:31)
[2019-02-13] MEDS: BUSPAR PO SCH ×2 (08:31→20:46)
[2019-02-13] MEDS: CYMBALTA PO SCH (08:31)
[2019-02-13] MEDS: MAXIPIME 2 GM in NS 100 ML IV SCH (09:23)
--- NOTE | 2019-02-13 13:24 | GASTROENTEROLOGY CONSULTATION ---
DATE: 02/13/2019 ATTENDING PHYSICIAN: Dr. Pederson PRIMARY CARE DOCTOR: Jessica Restrepo MD. REASON FOR CONSULTATION: Question of gastric outlet obstruction, abdominal pain. HISTORY OF PRESENT ILLNESS: Ms. Simeon is a 78-year-old female who was admitted on 02/09/2019 for right-sided chest pain and right upper quadrant pain. She was seen by general surgery as well as cardiology. According to general surgery, they will continue with the supportive care with IV antibiotics. Dr. Correa from cardiology saw her and suggested that her cardiac enzymes are negative and he believes her pain is noncardiac etiology likely. The patient does have a history of a left bundle-branch block which is chronic and her echocardiogram in the past had LV dysfunction. During the course of hospital stay, the patient has been complaining of nausea, vomiting, and diarrhea. She also had fevers. She was put on empiric antibiotics. Her stool studies showed moderate white cells, negative culture. No ova and parasites. Stool for occult blood was positive. C. difficile studies for toxin and antigen were negative. Her blood culture also was negative at 48 hours. Gastroenterology has been consulted for further management including EGD and colonoscopy. The patient had a colonoscopy done about [address] Sosa. According to her, that was normal. PAST MEDICAL HISTORY: Chorion carcinoma, restless legs syndrome, narcolepsy, hypothyroidism. PAST SURGICAL HISTORY: Hysterectomy, tonsillectomy, hemorrhoidectomy, breast cyst biopsy. FAMILY HISTORY: Diabetes, cervical cancer, heart disease. SOCIAL HISTORY: She lives with her . She has a daughter at bedside. She denies any tobacco, alcohol, or illicit drug abuse. ALLERGIES: Pseudoephedrine. MEDICATIONS: In the hospital include Ativan, Requip, Tylenol, BuSpar, Questran 4 g b.i.d., Cymbalta, Flagyl IV q.6 hours, gabapentin, Synthroid, Imodium, cefepime, Calmoseptine ointment, morphine, omeprazole 20 mg once daily, Phenergan 12.5 mg IV every 4 hours as needed, sodium chloride given once. DIET: She is on a heart healthy diet. REVIEW OF SYSTEMS: Denies any fevers, rigors, or chills. Did have some chest pain on admission, is improved. Does have nausea, vomiting intermittent, and diarrhea. She had noted some blood in the stools yesterday. She has a history of mild arthritis. She has a history of restless legs syndrome. PHYSICAL EXAMINATION: Temperature of 97.5 degrees, pulse rate of 60, respiratory rate 18, blood pressure 150/52, saturating 100% on room air. Body weight of 129 pounds and 9.6 ounces. BMI 23.7 kg/m2. General Appearance: Moderately built, moderately nourished, lying in bed, in no acute distress. HEENT: No pallor. No icterus. Pupils equal, reactive to light. Neck: Supple. Abdomen: Soft. Mild discomfort in the periumbilical region and right upper quadrant. No rebound or guarding. Extremities: No cyanosis, clubbing. Neurologic: She is alert, awake, oriented x3. LABS: Hemoglobin and hematocrit are 12.2 and 37.1, white count of 8.09, platelet count of 212,000. Sodium of 140, potassium 3.5, chloride 111, bicarb 21, anion gap 11, BUN of 18, creatinine 1.2, glucose of 98, calcium 8.5. Her urinalysis is showing moderate leukocytes. Her stool for Shigatoxin is negative. Her toxicology screen was positive for amphetamines. Her blood cultures were negative after 48 hours. Stool studies were negative. Only thing for the stool that was positive, occult blood and stool for moderate white cells. Urine culture is negative. IMAGING: She had a CT of the chest which showed no lung mass, no consolidation. Abdominal x-ray done 2 days ago, no acute abnormality. An abdominal ultrasound done on 02/10/2019 which showed mildly distended gallbladder nonspecific and stable atrophic right kidney. CT of the abdomen and pelvis on 02/10/2019 showed distention of the stomach, suggesting gastroparesis or gastric outlet obstruction. Fluid-filled colon. Rectal tube in place. Lung scan V/Q was negative for PE. ASSESSMENT AND PLAN: 1. Nausea, vomiting, and diarrhea. 2. CT scan showing abdominal gastric distention, rule out gastric outlet obstruction. 3. CT scan showing fluid in the colon. 4. Acute kidney injury. 5. Chronic left bundle branch block. 6. History of left-sided dysfunction and congestive heart failure. 7. Acute kidney injury. Aware. 8. Electrolyte imbalance. 9. Fever of 103 two days ago which is now resolved. Negative infectious workup. RECOMMENDATIONS: 1. We will schedule the patient for EGD and colonoscopy tomorrow to evaluate for the etiology of her nausea, vomiting, and diarrhea. The risks, benefits, indications, and alternatives were discussed with the patient and the family at bedside. All questions were answered. The patient did have trouble drinking the GoLYTELY in the past so we will encourage her oral intake or we can try NG tube if needed. We will discontinue her Questran for today as the patient is going to prepare for a colonoscopy. We will also hold her Imodium for today as well. She will continue on antibiotics per the primary care team. 2. Above plan was discussed with the patient and family at bedside. All questions were answered. We will continue on GI prophylaxis with omeprazole. I will start her on Culturelle b.i.d. and we will follow along. The above plan of care was discussed with the patient and family at bedside. All questions were answered. Please call us with any further questions. cc: MD Jessica Valdez MD [facility]
--- NOTE | 2019-02-13 13:51 | PROGRESS NOTE ---
DATE: 02/13/2019 SUBJECTIVE: Payal Simeon is a 78-year-old white female, who clinically appears better on a daily basis on IV antibiotics. She has diarrhea, and I think a colonoscopy is planned for tomorrow. She has been on clear liquids. Her heart rate 72, blood pressure 122/56 and O2 saturation 100%. She has no work of breathing. She is afebrile. She is on Maxipime. Her creatinine is 1.2. PLAN: Supportive care continues with antibiotics and IV fluids. She is on clear liquids. I think a colonoscopy is planned tomorrow. cc: Lola Robbins MD
[2019-02-13] MEDS ORDERED: GOLYTELY PO ONE (14:00)
--- NOTE | 2019-02-13 16:33 | PROGRESS NOTE ---
DATE: 02/13/2019 SUBJECTIVE: The patient has no major complaints. Diarrhea is improving, although she still has some very foul smelling stool, but her mental status is better. OBJECTIVE: Vital Signs: Blood pressure 149/68, heart rate of 74, respiratory rate of 18, temperature 97.4 degrees, 100% on room air. Cardiovascular: Regular rate and rhythm. Pulmonary: Bilateral breath sounds clear to auscultation. Abdomen: Soft, nontender, nondistended. Bowel sounds are positive. LABORATORY DATA: White count is 8, hemoglobin and hematocrit 12 and 37, platelets 212,000. Creatinine is down to 1.2, potassium 3.5. PROBLEM LIST: 1. Nausea, vomiting, diarrhea, really unclear etiology. All of her stool studies are negative. She is still having some diarrhea, but just unclear what is all contributing to that, but we will continue to monitor closely. I appreciate Dr. Zambrano's input. We are going to work on trying to get her in for testing for colonoscopy and we will continue to monitor. 2. Acute kidney injury, that is also resolved. We will continue to follow. 3. New onset congestive heart failure with a left bundle branch block. I am just going to have Cardiology just re-evaluate her since she has had a drop in her ejection fraction. We will be very cautious with fluids. 4. Hypokalemia, that stabilized. DISPOSITION: Pending her clinical status. She does have this intermittent confusion which raises concern. I am not quite sure what is all inducing some of her symptoms, but we will continue to follow. There was a little bit of left shift on the differentiation because of white blood cell count, weight loss, poor p.o. intake, chronic diarrhea and intermittent confusion, but we will continue to monitor closely. cc: Wander Pederson MD [facility]
[2019-02-13] MEDS: CULTURELLE PO SCH (20:46)
[2019-02-13] MEDS: REQUIP PO SCH (20:46)
[2019-02-14] MEDS: FLAGYL 500 MG/NS 500 MG/100 ML IVPB IV SCH ×4 (03:11→20:31)
[2019-02-14] MEDS: MORPHINE IV PRN (04:37)
[2019-02-14] MEDS: PRILOSEC PO SCH (06:00)
[2019-02-14] MEDS: SYNTHROID PO SCH (06:03)
[2019-02-14] MEDS ORDERED: ROBINUL ONE (07:16)
[2019-02-14] MEDS ORDERED: XYLOCAINE-MPF 2% ONE (07:16)
[2019-02-14] MEDS ORDERED: DIPRIVAN 1% ONE ×2 (07:16→09:02)
[2019-02-14 07:19] LABS: HEMATOCRIT 34.5 % (37.0-47.0); HEMOGLOBIN 11.2 g/dL (12.0-16.0); MCH 29.1 PG (27-31); MCHC 32.5 g/dL (33-37); MCV 89.6 FL (81-99); MPV 9.3 FL (7.4-10.4); RBC 3.85 XMIL (4.2-5.4); RDW 13.3 % (11.5-14.5); WBC 6.83 X1000 (4.8-10.8)
[2019-02-14 07:55] LABS: AGAP 10; BUN 12 mg/dL (8-22); CALCIUM 8.4 mg/dL (8.8-10.2); CHLORIDE 111 mmol/L (98-107); COSMO 286; CREATININE 0.9 mg/dL (0.5-0.9); ESTIMATED GFR > 60; GLUCOSE 93 mg/dL (70-104); POTASSIUM 3.2 mmol/L (3.5-5.1); SODIUM 144 mmol/L (136-145); TCO2 23 mmol/L (25-35)
--- NOTE | 2019-02-14 09:37 | ENDOSCOPY OPERATIVE NOTE ---
[facility] ENDOSCOPY OPERATIVE NOTE , PATIENT: Payal Simeon ADMISSION DATE: 02/14/2019 MR#: [id number] : 1940 EGD PROCEDURE REPORT PROCEDURE DATE: 02/14/2019 SURGEON: Mukesh Leal MD STATUS: inpatient LAST CLEANER: PREOPERATIVE DIAGNOSIS: The patient is a 78 yr old female here for an EGD due to nausea, vomiting, a nd unexplained diarrhea. PROCEDURE PERFORMED: EGD w/ biopsy MEDICATIONS: Per Anesthesia TOPICAL ANESTHETIC: none CONSENT: The patient understands the risks and benefits of the procedure and understands that these r isks include, but are not limited to: sedation, allergic reaction, infection, perforation and/or bleeding. Alternative means of evaluation and treatment include, among others: physical exam, x-rays, and/or surgical intervention. The patient elects to proceed with this endoscopic procedure. HISORY AND PHYSICAL: 02/14/2019 function. Hand hygiene and appropriate measures for infection prevention was taken. After the risks, benefits and alternatives of the procedure were thoroughly explained, Informed consent was verified, confirmed and timeout was successfully executed by the treatment team. The patient was anesthetized with topical anesthesia and the DI64-r22 ([id number]) endoscope was introduced through the mouth and advanced to the second portion of the duoden um. Retroflexion was performed in the stomach and revealed a hiatal hernia. The gastroscope was then slowly withdrawn and removed. ESOPHAGUS: The mucosa of the esophagus appeared normal. The z-line was noted at 40cm from the incis ors. The z-line appeared normal. A 2 cm hiatal hernia was noted. STOMACH: The mucosa of the stomach appeared normal. A biopsy was performed using cold forceps. Samp le sent for histology. DUODENUM: The duodenum was normal. A biopsy was performed using cold forceps. Sample sent for histo logy. SPECIMENS REMOVED: Yes ADVERSE EVENTS: There were no complications. POSTOPERATIVE DIAGNOSIS: 1. The mucosa of the esophagus appeared normal 2. The z-line was noted at 40cm from the incisors 3. 2 cm hiatal hernia 4. The mucosa of the stomach appeared normal; biopsy was performed 5. The duodenum was normal; biopsy was performed RECOMMENDATIONS: Await biopsy results REPEAT EXAM: Mukesh Leal MD eSigned: Mukesh Leal MD 02/14/2019 9:36 AM cc: PATIENT NAME: Payal Simeon MR#: [id number]
--- NOTE | 2019-02-14 09:41 | ENDOSCOPY OPERATIVE NOTE ---
[facility] ENDOSCOPY OPERATIVE NOTE , PATIENT: Payal Simeon ADM DATE: 02/14/2019 MR #: [id number] : 1940 COLONOSCOPY PROCEDURE REPORT PROCEDURE DATE: 02/14/2019 SURGEON: Mukesh Leal MD STATUS: inpatient [employer] VICE PRINCIPAL: PREOPERATIVE DIAGNOSIS: The patient is a 78 yr old female here for a colonoscopy due to unexplained diarrhea. PROCEDURE PERFORMED: Colonoscopy with biopsy MEDICATIONS: Per Anesthesia PREP TYPE: GoLytely
[2019-02-14] MEDS ORDERED: BLISTEX MEDICATED BERRY LIP BALM TOP PRN (10:50)
[2019-02-14] MEDS: NEURONTIN PO SCH ×3 (11:04→20:30)
[2019-02-14] MEDS: BUSPAR PO SCH ×2 (11:04→20:30)
[2019-02-14] MEDS: CYMBALTA PO SCH (11:05)
[2019-02-14] MEDS: CULTURELLE PO SCH ×2 (11:05→20:30)
[2019-02-14] MEDS: REQUIP PO SCH (20:30)
[2019-02-14] MEDS: COREG PO SCH (20:31)
--- NOTE | 2019-02-14 23:28 | DISCHARGE SUMMARY ---
ADMISSION DATE: 02/10/2019 DISCHARGE DATE: DISCHARGE DIAGNOSES: 1. Gastroenteritis. 2. Intractable nausea and vomiting. 3. Acute kidney injury due to dehydration. 4. New onset congestive heart failure with a left bundle branch block. 5. Hypokalemia. 6. Elevated D-dimer with negative deep venous thrombosis, pulmonary embolism workup. CONSULTATIONS: 1. Dr. Correa, cardiology. 2. Dr. Dhillon and Dr Leal, gastroenterology. PROCEDURES: Endoscopy, including colonoscopy and EGD with biopsy. Those were on 02/14/2019. HOSPITAL COURSE: This patient came in with initially complaints of restless legs, and also chest pain, right-sided. She had an elevated D-dimer. Her V/Q scan was negative for PE. She had an echo, and initially would not have the read until a day or so later, but EF was 30%. She had moderate MR. In any case, her cardiac workup was negative. Dr. Correa was consulted for the chest pain, which he felt was to be atypical. She had a PET stress in April 2018, which showed some LV dysfunction, at that point, but there was no evidence of perfusion defects. Her abdominal ultrasound showed a mildly distended gallbladder. Because of abdominal pain and nausea, we consulted GI and surgery. CT scan showed some stomach distention, but nothing much else. She developed perfuse diarrhea, very foul smelling. We got several stool studies, but they were really unremarkable. She developed a fever of 103. We empirically put her on antibiotics. Dr. Robbins evaluated her and did not feel she had need for cholecystectomy, at this time. It is really unclear if she had true biliary dyschezia. She improved with hydration. She did develop some renal insufficiency with a creatinine that bumped from admission of 1.2 to 1.8 to 2.1, and that improved with hydration. She did not have any evidence of cardiac decompensation despite her low EF. The patient continued to improve. GI was consulted per Dr. Zambrano, and she was set up for EGD and colonoscopy, which were completed on 02/14/2019, and fairly unremarkable. Her colon showed diverticulosis, but no evidence of colitis. Her EGD showed normal esophagus. She did have a hiatal hernia. Stomach, duodenum were all within normal limits. She was tolerating p.o. without difficulty and her diarrhea essentially resolved. White count was stable. Hemoglobin and hematocrit 11 and 34, potassium a little low at 3.4, creatinine of 0.9. All her stool studies were negative, including C diff assays. DISCHARGE CONDITION: Stable. DISCHARGE MEDICATIONS: Requip 3 at bedtime, BuSpar 15 b.i.d., Cymbalta 60 daily, Gralise 300 t.i.d., Synthroid 125 daily, Coreg 3.125 b.i.d., that is a new medication, lisinopril 10 daily. FOLLOW-UP: She will need to follow up with Dr. Wagner who sees her as an outpatient in cardiology because of her drop in ejection fraction and for closer monitoring. Follow up with Dr. Leal as far as her biopsy results in a couple weeks, and then her PCP, who is Dr. Restrepo, in 1 week to repeat labs and make sure she is stabilized as an outpatient. TOTAL TIME SPENT: Thirty-five minute discharge. cc: Wander Pederson MD
[2019-02-15] MEDS: FLAGYL 500 MG/NS 500 MG/100 ML IVPB IV SCH ×2 (03:04→10:50)
[2019-02-15] MEDS: SYNTHROID PO SCH (06:20)
[2019-02-15] MEDS: PRILOSEC PO SCH (06:20)
[2019-02-15 08:10] LABS: CALCIUM 8.4 mg/dL (8.8-10.2); CREATININE 1.1 mg/dL (0.5-0.9); POTASSIUM 3.7 mmol/L (3.5-5.1)
[2019-02-15] MEDS: CYMBALTA PO SCH (10:52)
[2019-02-15] MEDS: BUSPAR PO SCH ×2 (10:52→20:25)
[2019-02-15] MEDS: COREG PO SCH ×2 (10:53→20:25)
[2019-02-15] MEDS: CULTURELLE PO SCH ×2 (10:53→20:25)
[2019-02-15] MEDS: PRINIVIL PO SCH (10:53)
[2019-02-15] MEDS: NEURONTIN PO SCH ×3 (10:53→16:56)
--- NOTE | 2019-02-15 14:58 | PROVIDER PROGRESS NOTE ---
Progress Note S: Patient had uncomplicated EGD/Colonoscopy yesterday. No acute overnight events. Afebrile. Patient denies ongoing N/V/D. Tolerating PO. No abdominal pain. Patient reports of bilateral LE weakness. O: Last Vital Signs Temp 97.9 F 02/15/19 12:16 Pulse 66 02/15/19 12:16 Resp 18 02/15/19 12:16 BP 133/52 02/15/19 12:16 Pulse Ox 100 02/15/19 12:16 Height 5 ft 2 in Weight 129 lb 9.6 oz GEN: awake, alert, NAD HEENT: anicteric, MMM NECK: supple, no JVD CV: RRR, no mrg PULM: CTAB, no wheezing ABD: soft NT/ND, NABS EXT: no cce NEURO: nonfocal LABS: 02/15/19 07:20 Sodium 141 Potassium 3.7 D Chloride 107 Carbon Dioxide 26 BUN 9 Creatinine 1.1 H Glucose 121 H EGD/colonoscopy 02/14 EGD FINDINGS: 1. The mucosa of the esophagus appeared normal 2. The z-line was noted at 40cm from the incisors 3. 2 cm hiatal hernia 4. The mucosa of the stomach appeared normal; biopsy was performed 5. The duodenum was normal; biopsy was performed COLON FINDINGS: There was mild non-bleeding diverticulosis noted in the sigmoid colon. The colonic mucosa appeared normal throughout the entire examined colon. Multiple random biopsies were performed using cold forceps. Retroflexed views revealed no abnormalities. The scope was then completely withdrawn from the patient and the procedure terminated. A/P Ms. Payal Simeon is a 78 year old woman who presented with acute N/V/D and fever. Found to have BOBBI and hypokalemia secondary to volume depletion. EGD and colonoscopy was done to evaluate for etiology of symptoms and to rule out possible GOO seen on CT. She has small hiatal hernia and diverticulosis. No etiology of symptoms found. SB and random colon biopsies were obtained to rule out celiac disease and microscopic colitis, respectively. The etiology of her symptoms are likely gastroenteritis. No resolved. # Gastroenteritis: advance diet as tolerated # N/V: resolved # Hiatal hernia: noted # Diverticulosis: without diverticulitis: high fiber diet in a couple of weeks # BOBBI: resolved # Hypokalemia: resolved Patient being discharged. Will sign off. Follow-up with GI prn.
--- NOTE | 2019-02-15 16:32 | PROGRESS NOTE ---
DATE: 02/15/2019 SUBJECTIVE: Patient has no major complaints. OBJECTIVE: Vital Signs: Blood pressure 133/52, heart rate 66, respiratory rate 18, temperature 97.9 degrees. Cardiovascular: Regular rate and rhythm. Pulmonary: Bilateral breath sounds. Clear to auscultation. GI: Soft, nontender, nondistended. Bowel sounds are positive. LABORATORY DATA: White count, I do not have a white count today. Her electrolytes look okay. Her potassium is 3.7. PROBLEM LIST: 1. Gastroenteritis that seems to have resolved. She seems to be doing okay from that standpoint. 2. Hypokalemia. She is also stabilizing. 3. Acute kidney injury, stable. It resolved essentially. 4. Left bundle with new onset congestive heart failure, ejection fraction of 30%. Cardiology is going to re-evaluate possibly before discharge. 5. Disposition. Prior to discharge yesterday she was unable to ambulate. We could not safely discharged her home. PT has evaluated her and feel that most likely rehab will be necessary. She walked 3 feet max assist, so she is going to need inpatient rehab and we are looking at options from that standpoint. But medically, I think she is probably stable to go soon. cc: Wander Pederson MD
[2019-02-15] MEDS: REQUIP PO SCH (23:00)
[2019-02-15] MEDS: PHENERGAN IV PRN (23:38)
[2019-02-16] MEDS: IMODIUM PO PRN ×4 (01:11→21:39)
[2019-02-16] MEDS: PHENERGAN IV PRN (04:54)
[2019-02-16] MEDS: PRILOSEC PO SCH (06:00)
[2019-02-16] MEDS: SYNTHROID PO SCH (06:00)
[2019-02-16 08:01] LABS: BASO# 0.02 X1000 (0.0-0.2); BASO% 0.2 % (0.0-0.8); EOS# 0.14 X1000 (0.0-0.7); EOS% 1.6 % (0.0-10.0); HEMATOCRIT 40.2 % (37.0-47.0); HEMOGLOBIN 13.4 g/dL (12.0-16.0); IMM GRAN# 0.33 X1000 (0.0-0.04); IMM GRAN% 3.8 % (0.0-0.5); LYMPH# 1.23 X1000 (1.2-3.4); LYMPH% 14.3 % (20.5-51.1); MCH 29.3 PG (27-31); MCHC 33.3 g/dL (33-37); MCV 87.8 FL (81-99); MONO# 0.92 X1000 (0.11-0.59); MONO% 10.7 % (1.7-9.3); MPV 9.4 FL (7.4-10.4); NEUT# 5.97 X1000 (1.4-6.5); NEUT% 69.4 % (42.2-75.2); PLT 287 X1000 (130-400); RBC 4.58 XMIL (4.2-5.4); RDW 13.7 % (11.5-14.5); WBC 8.61 X1000 (4.8-10.8)
[2019-02-16 08:13] LABS: CALCIUM 8.6 mg/dL (8.8-10.2); CREATININE 1.1 mg/dL (0.5-0.9); POTASSIUM 3.3 mmol/L (3.5-5.1)
[2019-02-16] MEDS: BUSPAR PO SCH ×2 (09:04→21:39)
[2019-02-16] MEDS: PRINIVIL PO SCH (09:04)
[2019-02-16] MEDS: COREG PO SCH ×2 (09:04→21:39)
[2019-02-16] MEDS: CULTURELLE PO SCH ×2 (09:05→21:39)
[2019-02-16] MEDS: CYMBALTA PO SCH (09:05)
[2019-02-16] MEDS: NEURONTIN PO SCH ×3 (09:05→21:39)
[2019-02-16] MEDS ORDERED: KLOR-CON PO ONE (10:52)
--- NOTE | 2019-02-16 15:15 | PROGRESS NOTE ---
DATE: 02/16/2019 SUBJECTIVE: Patient is resting comfortably in bed. Family members at the bedside including her . The plan is to send this patient to a rehab center. OBJECTIVE: Vital Signs: Temperature 98.5 degrees, pulse 70, respiratory rate 18, blood pressure 147/82, oxygen saturation 99 on room air. HEENT: Head normocephalic, no trauma, PERRLA. Neck: Supple. No JVD. No masses. Central trachea. Chest: Clear to auscultation. No wheezing. No rales. Abdomen: Soft, slightly tenderness to palpation at the level of the periumbilical area. Positive bowel sounds. Extremities: No edema, no clubbing no cyanosis. Neurological: The patient is alert and oriented x3. No focal deficits. LABORATORY: WBC 8.6, hemoglobin 13.4, hematocrit 40.2, platelet 297,000. Sodium 142, potassium 3.3, chloride 108, bicarbonate 26, BUN 11, creatinine 1.1 glucose 120, calcium 8.6. ASSESSMENT AND PLAN: 1. Gastroenteritis, seems to have resolved, she is doing better. Mild discomfort to palpation at the level of the periumbilical area. No nausea. No vomiting. She is tolerating p.o. 2. Hypokalemia, I will replace the potassium today. 3. Acute kidney injury on chronic kidney disease, back to her baseline, resolved. Continue with same management. 4. Left bundle with new onset congestive heart failure, ejection fraction around 30%. Cardiology department already evaluated this patient. We will continue with the same management. 5. Generalized weakness and physical deconditioning, physical therapy and occupational therapy on board. The plan is to send this patient to a rehab center, health and social care teacher on board. cc: Kishore Cruz MD
[2019-02-16] MEDS: REQUIP PO SCH (21:39)
[2019-02-17] MEDS: PRILOSEC PO SCH (06:16)
[2019-02-17] MEDS: SYNTHROID PO SCH (06:16)
[2019-02-17 08:23] LABS: CALCIUM 8.6 mg/dL (8.8-10.2); CREATININE 1.1 mg/dL (0.5-0.9); POTASSIUM 3.4 mmol/L (3.5-5.1)
[2019-02-17] MEDS ORDERED: KLOR-CON PO ONE (08:38)
[2019-02-17] MEDS: PRINIVIL PO SCH (09:11)
[2019-02-17] MEDS: CYMBALTA PO SCH (09:11)
[2019-02-17] MEDS: CULTURELLE PO SCH (09:12)
[2019-02-17] MEDS: NEURONTIN PO SCH (09:12)
[2019-02-17] MEDS: COREG PO SCH (09:12)
[2019-02-17] MEDS: BUSPAR PO SCH (09:12)
--- NOTE | 2019-02-17 10:48 | DISCHARGE SUMMARY ---
ADMISSION DATE: 02/10/2019 DISCHARGE DATE: 02/17/2019 DISCHARGE DIAGNOSES: 1. Gastroenteritis, resolved. 2. Hypokalemia. 3. Acute kidney injury on chronic kidney disease, resolved. 4. Left bundle with new onset congestive heart failure, ejection fraction around 30%. 5. Generalized weakness and general deconditioning. 6. Restless leg syndrome. 7. History of narcolepsy. 8. Hypothyroidism. 9. Situational anxiety. PROCEDURES PERFORMED: EKG dated 02/09/2019 with impression of under terminated rhythm, left bundle branch block. Chest x-ray dated 02/09/2019 with impression of low lung volume with mild bibasilar atelectasis. Echocardiogram dated 02/09/2019 with conclusion of technically difficulty study, moderate mitral regurgitation, mild tricuspid regurgitation with moderate pulmonary hypertension by Doppler, estimated left ventricular ejection fraction around 30%, abnormal septal wall motion demonstrated, possibly related to interventricular conduction abnormality. Lung VQ scan dated 02/09/2019 with impression negative for pulmonary embolism. Abdomen and pelvis CT scan dated 02/10/2019 with impression of distention of the stomach suggesting gastroparesis or gastric outlet obstruction, fluid filled colon, rectal tube in place. Abdominal ultrasound dated 02/10/2019 with impression of mildly distended gallbladder, nonspecific, stable atrophic right kidney. Abdominal x-ray dated 02/11/2019 with impression of no acute abnormality. Chest CT scan dated 02/11/2019 with impression of no lung mass. Endoscopic procedure done on 02/14/2019 with mild nonbleeding diverticulosis noted in the sigmoid colon. The colonic mucosa appeared normal throughout the entire examined colon. EGD showed normal stomach and duodenum, 2 cm hiatal hernia. Esophagus appeared normal. CONSULTATIONS: Cardiology Department, Dr. Correa. Surgery Department, Dr. Robbins. Gastroenterology Department, Dr. Leal. HOSPITAL COURSE: This is a 78-year-old female with a past medical history of chorion carcinoma, restless leg syndrome, narcolepsy and hypothyroidism. Admitted on 02/09/2019. Presented to [facility] with poor history. She was kicking her legs up and down and rocking back and forth, mumbling at times and somewhat unclear what she was saying. The patient was also noted a great historian at that time. She had a bad spell of restless leg syndrome, according to the , who states that this happens maybe every 3 to 4 weeks. Normally it does not last too much, and she is okay when she wakes up. She also complained of right-sided sharp, stabbing chest pain that was not radiating, with no associated nausea, vomiting, shortness of breath or diaphoresis. As per the patient, she never had this kind of pain before. It would last a few seconds and then go away and then come back, so it was very intermittent and scattered. The stated that she has been taking her medications as prescribed. The previous week, she saw her steel erector apprentice, Dr. Wagner, with no problems identified at that visit. Workup in the emergency department showed an elevated D-dimer at 0.89, BUN of 31, creatinine 1.2. The first set of cardiac enzymes were negative. X-rays showed low lung volumes with mild bibasilar atelectasis. She received some medications at that time, like Norflex, Ativan, Haldol, and Benadryl, and she was lethargic, somewhat lethargic at the moment of examination, but she has continued to have kicking of her legs, raising them, and she was rolling from side to side in the bed, but she apparently was not complaining of pain. Because of the mild elevation of the D-dimer, a VQ scan was negative. We did not notice any swelling or pain at the level of the lower extremities. Echocardiogram showed an ejection fraction of 30% with pulmonary hypertension. Cardiology was consulted. She started having some abdominal discomfort, and she was waking up a little bit. It looks like she has an EKG that showed left bundle branch block which is chronic, with negative enzymes. So the chest pain likely was noncardiac in etiology. Abdominal ultrasound showed mildly distended gallbladder and chronic stable right kidney atrophy. Her CT scan showed a distended stomach showing gastroparesis or gastric outlet obstruction, fluid filled colon. Surgery Department and Gastroenterology Department were consulted because of the dilated stomach. Gastroenterology did a lower endoscopy, and no obstruction was visualized. They put this patient on gastric protection, and also she was started on some Culturelle. Chest CT did not show any mass or consolidation. The patient was improving on a daily basis. Like I have mentioned before, she had an EGD and colonoscopy done. At some point, she was supposed to be discharged, but she was not able to walk properly, and she was extremely weak, so we have decided to evaluate this patient with physical therapy and occupational therapy, and this patient qualifies to go to a rehab center, and that is the plan. This patient is tolerating p.o. really well. She is a little bit stronger compared to the previous days, but she is still weak. She will be discharged today. She is completely awake, alert and oriented x3. Family members at the bedside. PHYSICAL EXAMINATION: VITAL SIGNS: Temperature is 98.2, pulse 65, respiratory rate 18, blood pressure 153/63, oxygen saturation 100% on 2 L of nasal cannula. HEENT: Head is atraumatic and normocephalic. PERRLA. NECK: Supple. No masses. Central trachea. CHEST: Clear to auscultation. No wheezing. No rales. ABDOMEN: Soft, nontender and nondistended. No hepatosplenomegaly. EXTREMITIES: No edema. No clubbing. No cyanosis. NEUROLOGICAL: The patient is alert and oriented x3 with no focal deficits but generalized weakness. DIAGNOSTIC DATA: Sodium is 141, potassium 3.4, chloride 109, bicarbonate 23, BUN is 11, creatinine 1.1, glucose 91, calcium 9.6. DISCHARGE MEDICATIONS: 1. Acetaminophen 650 mg p.o. q.6 hours as needed for fever. 2. Buspirone 15 mg p.o. b.i.d. 3. Coreg 3.125 mg p.o. b.i.d. 4. Duloxetine 60 mg p.o. daily. 5. Gabapentin 300 mg p.o. t.i.d. 6. Culturelle 1 tablet p.o. b.i.d. 7. Levothyroxine 135 mcg p.o. daily at 7 p.m. 8. Lisinopril 10 mg p.o. daily. 9. Loperamide 2 mg p.o. q.4 hours as needed. 10.Omeprazole 20 mg p.o. daily. 11.Ropinirole 3 mg p.o. nightly at bedtime. Time to discharge this patient is 35 minutes. cc: Kishore Cruz MD
[2019-02-17 11:19] VITALS: BP 127/51
== END 2019-02-17 14:00 | DRG 392 ==
LOC: 3N 05:14 → ED 05:14 → SUATTDRO 02-10 10:43
PROVIDERS: ATTEND Internal Medicine